=== PATIENT | female | born 1980 | race Caucasian/White ===

== ENCOUNTER 2017-02-28 11:51 | Emergency (ER) | payer SELFPAY ==
[2017-02-28] MEDS ORDERED: NS 0.9% 1000 ML* 1,000 ML IV ONE (12:17)
[2017-02-28] MEDS ORDERED: Morphine INJ* 4 MG/ML 1 ML CARPUJECT IV ONE (12:17)
[2017-02-28] MEDS ORDERED: Ondansetron INJ* 2 MG/ML VIAL IV ONE (12:17)
[2017-02-28 12:37] LABS: Hematocrit 38 % (35-47); Hemoglobin 13.4 g/dl (12.0-16.0); Mean Corpuscular HGB Conc 36 g/dl (31-36); Mean Corpuscular Hemoglobin 34 pg (27-31); Mean Corpuscular Volume 95 fL (80-97); Mean Platelet Volume 7 um3 (7.4-10.4); Red Blood Count 3.98 10^6/ul (4.0-5.4); Red Cell Distribution Width 12 % (10.5-15); White Blood Count 4.9 10^3/ul (3.5-10.8)
[2017-02-28 12:54] LABS: ALT 13 U/L (7-52); AST 14 U/L (13-39); Albumin 4.1 g/dL (3.2-5.2); Alkaline Phosphatase 51 U/L (34-104); Anion Gap 6 mmol/L (2-11); Blood Urea Nitrogen 10 mg/dL (6-24); C Reactive Protein 2.44 mg/L (< 5.00); CO2 Carbon Dioxide 26 mmol/L (22-32); Calcium 9.2 mg/dL (8.6-10.3); Chloride 105 mmol/L (101-111); EGFR Non-African American 69.9 (>60); Globulin 2.6 g/dL (2-4); Glucose 125 mg/dL (70-100); Lipase 26 U/L (11.0-82.0); Potassium 3.6 mmol/L (3.5-5.0); Sodium 137 mmol/L (133-145); Total Protein 6.7 g/dL (6.4-8.9)
[2017-02-28] MEDS ORDERED: Iohexol 300* (CONTRAST) 10 ML SDV IV ONE (14:16)
--- NOTE | 2017-02-28 14:58 | RAD ---
CLINICAL HISTORY: Right lower quadrant tenderness COMPARISON: None TECHNIQUE: Multiple contiguous axial CT scans were obtained of the abdomen and pelvis after the administration of intravenous contrast. Coronal and sagittal multiplanar reformations are submitted for review. Oral contrast was administered. Delayed images were obtained through the abdomen and pelvis. FINDINGS: LUNG BASES: The lung bases are clear. LIVER: The liver is normal in shape, size, contour, and attenuation. BILE DUCTS: There is no intrahepatic or extrahepatic biliary dilatation. GALLBLADDER: The gallbladder is normal, without pericholecystic inflammatory change. PANCREAS: The pancreas is normal, without mass or ductal dilatation. SPLEEN: Normal in size and appearance. UPPER GI TRACT: Evaluation of the gastrointestinal tract is limited by incomplete gastric distention. The upper GI tract is unremarkable. SMALL BOWEL AND MESENTERY: The small bowel is normal in contour, course, and caliber. There is no obstruction or dilatation. COLON: The colon is normal in contour, course, caliber. There is no pericolonic inflammatory change. There is a tubular, vermiform, hollow viscus that is blind ending, and originates from the cecum, consistent with a normal appendix. There is no periappendiceal inflammatory change. This is best seen on coronal image 41. ADRENALS: Normal bilaterally. KIDNEYS: The kidneys are normal in shape, size, contour, and axis. There is no hydronephrosis or nephrolithiasis. BLADDER: The bladder is smooth in contour. PELVIC ORGANS: There is a complex of right ovarian cysts measuring up to 5.6 cm in size. AORTA: The aorta is normal. IVC: Unremarkable LYMPH NODES: There is no lymphadenopathy by size criteria. ABDOMINAL WALL: There is a small fat-containing umbilical hernia. BONES AND SOFT TISSUES: Unremarkable OTHER: None IMPRESSION: 1. NORMAL APPENDIX. 2. RIGHT OVARIAN CYSTS MEASURING UP TO 5. 6 CM IN SIZE. IF CLINICALLY INDICATED, THIS CAN BE FURTHER EVALUATED WITH ULTRASOUND OF THE PELVIS..
--- NOTE | 2017-02-28 16:18 | RAD ---
INDICATION: Right lower quadrant abdominal pain. COMPARISON: Comparison is made with a prior CT of the abdomen and pelvis from February 28, 2017 and a prior pelvic ultrasound from March 23, 2004. TECHNIQUE: Multiple real-time transvaginal images of the pelvis were obtained. FINDINGS: The uterus is normal in size, shape and echogenicity. The uterus measured 9.6 x 5.3 x 6.5 cm. The endometrial echo measured 1.1 cm in thickness. There is a small cystlike structure present within the endometrium measuring 0.6 x 0.8 x 0.6 cm likely representing an endometrial cyst less likely an early intrauterine . In addition there is a hyperechoic lesion present within the endometrium measuring 0.8 x 0.4 x 0.7 cm suspicious for an endometrial polyp. The right ovary measured 6.0 x 4.9 x 3.9 cm. The left ovary measured 2.8 x 1.5 x 2.5 cm. There is vascular flow within both ovaries. There is a 3.7 x 3.4 x 3.6 cm simple cyst present within the right ovary and a hyperechoic lesion in the right ovary measuring 2.7 x 2.5 x 2.1 cm likely representing a hemorrhagic cyst. There is a small amount of adjacent free intraperineal fluid. IMPRESSION: 1. SMALL CYSTLIKE STRUCTURE PRESENT WITHIN THE ENDOMETRIAL CAVITY LIKELY REPRESENTING AN ENDOMETRIAL CYST LESS LIKELY AN EARLY INTRAUTERINE . RECOMMEND CLINICAL CORRELATION. 2. SMALL HYPERECHOIC LESION IN THE ENDOMETRIUM SUGGESTIVE OF A ENDOMETRIAL POLYP. 3. RIGHT OVARIAN CYSTS DESCRIBED. THE SMALLER CYST IS COMPLEX LIKELY REPRESENTING A HEMORRHAGIC CYST. RECOMMEND A FOLLOW-UP TRANSVAGINAL PELVIC ULTRASOUND IN 1-2 MONTHS TIME TO DEMONSTRATE RESOLUTION.
[2017-02-28] MEDS ORDERED: oxyCODONE/Acetamin 5/325 MG* TAB PO ONE (16:27)
[2017-02-28 18:22] VITALS: BP 123/70
--- NOTE | 2017-02-28 21:59 | ED ---
Hilda Tyson Thomas, scribed for Braydon Triana MD on 02/28/17 at 1220 . Abdominal Pain/Female - HPI Summary HPI Summary: The pt is a 36 y/o F presenting to the ED c/o RLQ abd pain that suddenly began yesterday at 18:30 shortly after she urinated. The pain is constant. The pain is rated 9/10. The pain is aggravated by palpation and is alleviated by nothing. The patient has treated the pain with nothing PATIENT CARE PROVIDER. Pt additionally c/o nausea, vomiting, decreased appetite, constipation (last BM was 3 days ago), generalized malaise, and sweats. Pt denies fever and chills. PMHx includes umbilical hernia. The patient denies a history of abdominal surgery. - History of Current Complaint Chief Complaint: EDAbdPain Stated Complaint: RIGHT ABD PAIN Time Seen by Provider: 02/28/17 12:11 Hx Obtained From: Patient Onset/Duration: Sudden Onset, Lasting Days - 1, Still Present Timing: Constant Severity Currently: Severe Pain Intensity: 9 Pain Scale Used: 0-10 Numeric Location: Discrete At: RLQ Aggravating Factor(s): Other: - Palpation Alleviating Factor(s): Nothing Associated Signs and Symptoms: Positive: Constipation - last BM thre days ago, Decreased Appetite, Nausea, Vomiting, Other: - Generalized malaise, sweats; NEGATIVE: chills. Negative: Fever, Diarrhea Allergies/Adverse Reactions: Allergies Allergy/AdvReac Type Severity Reaction Status Date / Time No Known Allergies Allergy Verified 02/02/13 12:43 PMH/Surg Hx/FS Hx/Imm Hx Previously Healthy: No Endocrine/Hematology History: Denies: Hx Diabetes Cardiovascular History: Denies: Hx Pacemaker/ICD Respiratory History: Reports: Hx Asthma History: Reports: Other Problems/Disorders - Hx umbical hernia Sensory History: Denies: Hx Hearing Aid Psychiatric History: Denies: Hx Panic Disorder - Surgical History Surgery Procedure, Year, and Place: LEFT THUMB ~ 1994; Infectious Disease History: No Infectious Disease History: Denies: Traveled Outside the [place] in Last 30 Days - Family History Known Family History: Positive: Diabetes - Social History Lives: With Family Alcohol Use: None Substance Use Type: Reports: None Smoking Status (MU): Never Smoked Tobacco Review of Systems Positive: Other - Generalized malaise, sweats. Negative: Fever, Chills Negative: Erythema - eyes Negative: Sore Throat Negative: Chest Pain Negative: Shortness Of Breath, Cough Positive: Abdominal Pain - RLQ, Vomiting, Nausea, Other - Decreased appetite, constipation Negative: dysuria, hematuria Negative: Myalgia, Edema - legs Negative: Rash Neurological: Other - NEGATIVE: dizziness All Other Systems Reviewed And Are Negative: Yes Physical Exam - Summary Physical Exam Summary: Constitutional: Well-developed, Well-nourished, Alert. (-) Distressed Skin: Warm, Dry HENT: Normocephalic; Atraumatic Eyes: Conjunctiva normal Neck: Musculoskeletal ROM normal neck. (-) JVD, (-) Stridor, (-) Tracheal deviation Cardio: Rhythm regular, rate normal, Heart sounds normal; Intact distal pulses; The pedal pulses are 2+ and symmetric. Radial pulses are 2+ and symmetric. (-) Murmur Pulmonary/Chest wall: Effort normal. (-) Respiratory distress, (-) Wheezes, (-) Rales Abd: She has RLQ tenderness. There is an umbilical hernia that is soft, easily reducible, and nontender. Soft, (-) Distension, (-) Guarding, (-) Rebound Musculoskeletal: (-) Edema Lymph: (-) Cervical adenopathy Neuro: Alert, Oriented x3 Psych: Mood and affect Normal Vital Signs On Initial Exam: Initial Vitals Temp Pulse Resp BP Pulse Ox 97.7 F 95 20 131/77 100 02/28/17 11:52 02/28/17 11:52 02/28/17 11:52 02/28/17 11:52 02/28/17 11:52 - [place] Coma Scale Coma Scale Total: 15 Diagnostics - Vital Signs Vital Signs Temp Pulse Resp BP Pulse Ox 02/28/17 11:52 97.7 F 95 20 131/77 100 - Laboratory Result Diagrams: 02/28/17 12:25 02/28/17 12:25 Lab Statement: Any lab studies that have been ordered have been reviewed, and results considered in the medical decision making process. - CT CT Abd/Pel CT Interpretation: Positive (See Comments) - 1. NORMAL APPENDIX. 2. RIGHT OVARIAN CYSTS MEASURING UP TO 5. 6 CM IN SIZE. IF CLINICALLY INDICATED, THIS CAN BE FURTHER EVALUATED WITH ULTRASOUND OF THE PELVIS. ED physician has reviewed this report and agrees. CT Interpretation Completed By: Radiologist - Additional Comments Diagnostic Additional Comments: Transvaginal Ultrasound. Interpreted by radiologist. Impression: 1. SMALL CYSTLIKE STRUCTURE PRESENT WITHIN THE ENDOMETRIAL CAVITY LIKELY REPRESENTING AN ENDOMETRIAL CYST LESS LIKELY AN EARLY INTRAUTERINE . RECOMMEND CLINICAL CORRELATION. 2. SMALL HYPERECHOIC LESION IN THE ENDOMETRIUM SUGGESTIVE OF A ENDOMETRIAL POLYP. 3. RIGHT OVARIAN CYSTS DESCRIBED. THE SMALLER CYST IS COMPLEX LIKELY REPRESENTING A HEMORRHAGIC CYST. RECOMMEND A FOLLOW-UP TRANSVAGINAL PELVIC ULTRASOUND IN 1-2 MONTHS TIME TO DEMONSTRATE RESOLUTION. ED physician has reviewed this report and agrees. Re-Evaluation - Re-Evaluation First Eval Re-Evaluation Time: 17:55 Change: Worse Comment: Patient's pain severity has increased to 9/10. I will call OBGYN. Second Eval Re-Evaluation Time: 18:13 Change: Unchanged Comment: I updated the patient and her . Abdominal Pain Fem Course/Dx - Course Course Of Treatment: The pt is a 36 y/o F presenting to the ED c/o RLQ abd pain that suddenly began yesterday at 18:30 shortly after she urinated. The pain is constant. The pain is rated 9/10. The pain is aggravated by palpation and is alleviated by nothing. The patient has treated the pain with nothing PATIENT CARE PROVIDER. Pt additionally c/o nausea, vomiting, decreased appetite, constipation (last BM was 3 days ago), generalized malaise, and sweats. Pt denies fever and chills. PMHx includes umbilical hernia. The patient denies a history of abdominal surgery. In the ED course the patient was given Morhpine, IV fluids, and Zofran. At re-evaluation at 15:22, the patient is resting normally. Bloodwork was obtained. CT Abd/Pel shows 1. NORMAL APPENDIX. 2. RIGHT OVARIAN CYSTS MEASURING UP TO 5. 6 CM IN SIZE. IF CLINICALLY INDICATED, THIS CAN BE FURTHER EVALUATED WITH ULTRASOUND OF THE PELVIS. Transvaginal US shows 1. SMALL CYSTLIKE STRUCTURE PRESENT WITHIN THE ENDOMETRIAL CAVITY LIKELY REPRESENTING AN ENDOMETRIAL CYST LESS LIKELY AN EARLY INTRAUTERINE . RECOMMEND CLINICAL CORRELATION. 2. SMALL HYPERECHOIC LESION IN THE ENDOMETRIUM SUGGESTIVE OF A ENDOMETRIAL POLYP. 3. RIGHT OVARIAN CYSTS DESCRIBED. THE SMALLER CYST IS COMPLEX LIKELY REPRESENTING A HEMORRHAGIC CYST. RECOMMEND A FOLLOW-UP TRANSVAGINAL PELVIC ULTRASOUND IN 1-2 MONTHS TIME TO DEMONSTRATE RESOLUTION. I consulted with LYNSEY Moy, who will see the patient tomorrow if she is in severe pain or next week if she is not in severe pain.The patient is diagnosed with hemorrhagic cyst to the right ovary. The patient is instructed to follow up with OBGYN. The patient is prescribed Percocet. Patient was given a work note for three days. Patient is agreeable with this plan. - Diagnoses Provider Diagnoses: Hemorrhagic cyst of right ovary - Provider Notifications Discussed Care Of Patient With: Axel Benites Time Discussed With Above Provider: 18:11 Instructed by Provider To: Other - I consulted with LYNSEY Moy, who will see the patient tomorrow if she is in severe pain or next week if she is not in severe pain. Discharge - Discharge Plan Condition: Stable Disposition: HOME Prescriptions: oxyCODONE/Acetamin 5/325 MG* [Percocet 5/325 TAB*] 1 tab PO Q6H PRN #12 tab MDD 4 PRN Reason: Pain - Moderate To Severe Patient Education Materials: Ovarian Cyst (ED) Forms: *Work Release Referrals: Axel Benites MD [Medical Doctor] - 7 Days Additional Instructions: Follow up at Dr. Benites's office next week. If you still have severe pain tomorrow, you should call for an appointment tomorrow afternoon. Return to the emergency department for any new or worsening symptoms. The documentation as recorded by the Hilda gonzalez Thomas accurately reflects the service I personally performed and the decisions made by me, Braydon Triana MD.
== END 2017-02-28 18:21 | disposition home or self-care (01) ==
LOC: ED 11:51
DX: N83.201 Unspecified ovarian cyst, right side (principal); R10.31 Right lower quadrant pain; R11.2 Nausea with vomiting, unspecified
CPT/HCPCS: 36415; 74177; 76830; 80053; 83605; 83690; 84702; 85025; 86140; 96374; 96375; 99282; A9270-GY; J2270; J2405; Q9967

== ENCOUNTER 2017-07-26 08:51 | Emergency (ER) | payer SELFPAY ==
[2017-07-26 10:31] LABS: ABS Basophils 0 10^3/ul (0-0.2); ABS Eosinophils 0.1 10^3/ul (0-0.6); ABS Lymphocytes 1.6 10^3/ul (1.0-4.8); ABS Monocytes 0.4 10^3/ul (0-0.8); ABS Neutrophils 3.4 10^3/ul (1.5-7.7); ABS Nucleated RBC 0 10^3/ul; Eosinophil % 1.8 % (0-6); Hematocrit 38 % (35-47); Hemoglobin 13.3 g/dl (12.0-16.0); Lymphocyte % 29.4 % (25-47); Mean Corpuscular HGB Conc 35 g/dl (31-36); Mean Corpuscular Hemoglobin 33 pg (27-31); Mean Corpuscular Volume 94 fL (80-97); Mean Platelet Volume 6.6 um3 (7.4-10.4); Nucleated Red Blood Cells % 0; Platelet Count 329 10^3/ul (150-450); Red Blood Count 4.02 10^6/ul (4.0-5.4); Red Cell Distribution Width 12 % (10.5-15); White Blood Count 5.6 10^3/ul (3.5-10.8)
--- NOTE | 2017-07-26 10:37 | RAD ---
HISTORY: Left-sided numbness COMPARISONS: March 16, 2015 TECHNIQUE: Multiple contiguous axial CT scans were obtained of the head without intravenous contrast. FINDINGS: HEMORRHAGE/INFARCT: There is no hemorrhage or acute infarct. MASSES/SHIFT: There is no mass or shift. EXTRA-AXIAL SPACES: There are no extra-axial fluid collections. SULCI AND VENTRICLES: The sulci and ventricles are normal in size and position for the patient's stated age. CEREBRUM: There are no focal parenchymal abnormalities. BRAINSTEM: There are no focal parenchymal abnormalities. CEREBELLUM: There are no focal parenchymal abnormalities. VESSELS: The vessels are grossly normal. PARANASAL SINUSES: The paranasal sinuses are clear. ORBITS: The orbits are unremarkable. BONES AND SOFT TISSUE: No bone or soft tissue abnormalities are noted. OTHER: None IMPRESSION: NO ACUTE INTRACRANIAL PATHOLOGY.
[2017-07-26 10:39] LABS: INR 0.94 (0.77-1.02)
--- NOTE | 2017-07-26 10:56 | RAD ---
INDICATION: Left-sided numbness. COMPARISON: Correlation is made with a prior chest x-ray study from March 16, 2015. TECHNIQUE: Dual-energy PA and lateral views of the chest were obtained. FINDINGS: The heart is within normal limits in size. Mediastinal and hilar contours appear within normal limits. The lungs are clear. No pleural effusion is present. IMPRESSION: NO EVIDENCE FOR ACTIVE CARDIOPULMONARY DISEASE.
[2017-07-26 11:23] LABS: Urine Appearance Clear; Urine Blood 2+ (Negative); Urine Color Straw; Urine Ketones Negative (Negative); Urine Protein Negative (Negative); Urine Specific Gravity 1.005 (1.010-1.030); Urine Urobilinogen Negative (Negative)
[2017-07-26 14:07] VITALS: BP 114/61
--- NOTE | 2017-07-27 12:00 | ED ---
Derrick Tyson Angela, scribed for Naveen Machado MD on 07/26/17 at 1025 . Neurological HPI - HPI Summary HPI Summary: This pt is a 37 y/o female [facility] [place]/o left arm numbness x2 days. Pt reports that 5 days ago she felt as if her "sugar was crashing", although she is not a diabetic, where she felt weak and fatigued. Pt notes she ate candy and drank soda and her symptoms resolved. Pt states she was fine over the weekend but 2 days ago she had the same episode but this time her symptoms did not resolve after sugar. She reports that her whole left side suddenly became numb. Currently she states her numbness resolved except for numbness on her left arm. She additionally notes generalized weakness, fatigue, and mild dizziness. Pt reports she feels hot and cold. Denies chest pain, SOB, headache, dysuria, diarrhea, constipation, fever, chills , cough. Pt had similar episode happen "years ago" where she lost vision but all resolved spontaneously. Denies hx of migraine or headaches. - History of Current Complaint Chief Complaint: EDWeakness Stated Complaint: LT ARM NUMBNESS Time Seen by Provider: 07/26/17 09:52 Hx Obtained From: Patient Onset/Duration: Started days ago, Still Present Timing: Sudden Onset Current Severity: Mild Pain Intensity: 0 - denies pain Pain Scale Used: 0-10 Numeric Character: Weak - generalized, Numbness/Tingling - numbness in left arm Aggravating: Nothing Alleviating: Nothing Associated Signs and Symptoms: Positive: Weakness - generalized, Dizziness. Negative: Headache, Pain, Nausea/Vomiting, Fever, Diarrhea, Chest Pain, Shortness of Breath - Allergy/Home Medications Allergies/Adverse Reactions: Allergies Allergy/AdvReac Type Severity Reaction Status Date / Time No Known Allergies Allergy Verified 02/02/13 12:43 Home Medications: Home Medications NK [No Home Medications Reported] 07/26/17 [History Confirmed 07/26/17] PMH/Surg Hx/FS Hx/Imm Hx Endocrine/Hematology History: Denies: Hx Diabetes Cardiovascular History: Denies: Hx Pacemaker/ICD Respiratory History: Reports: Hx Asthma History: Reports: Other Problems/Disorders - Hx umbical hernia Sensory History: Denies: Hx Hearing Aid Psychiatric History: Denies: Hx Panic Disorder - Surgical History Surgery Procedure, Year, and Place: LEFT THUMB ~ 1994; Infectious Disease History: No Infectious Disease History: Denies: Traveled Outside the [place] in Last 30 Days - Family History Known Family History: Positive: Diabetes Family History: Cancer - Social History Alcohol Use: Occasionally Alcohol Amount: 5-6 on weekends Substance Use Type: Reports: None Smoking Status (MU): Never Smoked Tobacco Review of Systems Positive: Fatigue. Negative: Fever Negative: Chest Pain Negative: Shortness Of Breath, Cough Negative: Diarrhea, Other - constipation Negative: dysuria Neurological: Other - POS: dizziness Positive: Weakness - generalized, Numbness - in left arm. Negative: Headache All Other Systems Reviewed And Are Negative: Yes Physical Exam - Summary Physical Exam Summary: VITAL SIGNS: Reviewed. GENERAL: Patient is a well-developed and nourished female who is lying comfortable in the stretcher. Patient is not in any acute respiratory distress. HEAD AND FACE: No signs of trauma. No ecchymosis, hematomas or skull depressions. No sinus tenderness. EYES: PERRLA, EOMI x 2, No injected conjunctiva, no nystagmus. No photophobia. EARS: Hearing grossly intact. Ear canals and tympanic membranes are within normal limits. MOUTH: Oropharynx within normal limits. NECK: Supple, trachea is midline, no adenopathy, no JVD, no carotid bruit, no c- spine tenderness, neck with full ROM. No meningeal signs, no Kernig's or brudzinskis signs. CHEST: Symmetric, no tenderness at palpation LUNGS: Clear to auscultation bilaterally. No wheezing or crackles. CVS: Regular rate and rhythm, S1 and S2 present, no murmurs or gallops appreciated. ABDOMEN: Soft, non-tender. No signs of distention. No rebound no guarding, and no masses palpated. Bowel sounds are normal. EXTREMITIES: FROM in all major joints, no edema, no cyanosis or clubbing. NEURO: Alert and oriented x 3. No acute neurological deficits. Speech is normal and follows commands. SKIN: Dry and warm GCS: 15 Triage Information Reviewed: Yes Vital Signs On Initial Exam: Initial Vitals Temp Pulse Resp BP Pulse Ox 98.3 F 75 16 120/67 100 07/26/17 08:54 07/26/17 08:54 07/26/17 08:54 07/26/17 08:54 07/26/17 08:54 Vital Signs Reviewed: Yes - [place] Coma Scale Best Eye Response: 4 - Spontaneous Best Motor Response: 6 - Obeys Commands Best Verbal Response: 5 - Oriented Coma Scale Total: 15 Diagnostics - Vital Signs Vital Signs Temp Pulse Resp BP Pulse Ox 07/26/17 10:00 70 15 132/80 99 07/26/17 09:46 68 13 100 07/26/17 09:44 108/68 07/26/17 08:54 98.3 F 75 16 120/67 100 - Laboratory Result Diagrams: 07/26/17 10:21 07/26/17 10:21 Lab Statement: Any lab studies that have been ordered have been reviewed, and results considered in the medical decision making process. - Radiology Chest XR Xray Interpretation: No Acute Changes - IMPRESSION: No evidence for active cardiopulmonary disease. Dr. Machado has reviewed this radiology report. Radiology Interpretation Completed By: Radiologist - CT Brain CT CT Interpretation: No Acute Changes - IMPRESSION: No acute intracranial pathology. Dr. Machado has reviewed this radiology report. CT Interpretation Completed By: Radiologist - EKG 10:13 Cardiac Rate: Bradycardia EKG Rhythm: Sinus Bradycardia - at 59 bpm EKG Interpretation: No ST elevations. Normal axis. NIH Scale - NIH Scale Level of Consciousness: Alert/Keenly Responsive Ask Patient the Month and His/Her Age: Both Correct Ask Pt to Open/Close Eyes and Bag Worker/Release Non-Paretic Hand: Both Correctly Best Gaze (Only Horizontal Eye Movement): Normal Visual Field Testing: No Visual Loss Facial Paresis-Pt to Smile & Close Eyes or Grimace Symmetry: Normal/Symmetrical Motor Function - Right Arm: No Drift-Holds 10 Seconds Motor Function - Left Arm: No Drift-Holds 10 Seconds Motor Function - Right Leg: No Drift-Holds 10 Seconds Motor Function - Left Leg: No Drift-Holds 10 Seconds Limb Ataxia-Must be out of Proportion to Weakness Present: Absent Sensory (Use Pinprick to Test Arms/Legs/Trunk/Face): Normal Best Language (Describe Picture, Name Items): No Aphasia Dysarthria (Read Several Words): Normal Extinction and Inattention: No Abnormality Total Score: 0 Re-Evaluation - Re-Evaluation First Eval Re-Evaluation Time: 13:52 Comment: I reviewed the labs, XR, and CT results with the pt. Pt will be discharged home. Course/Dx - Course Assessment/Plan: This pt is a 37 y/o female presenting [facility] [place]/o left arm numbness x2 days. Pt reports that 5 days ago she felt as if her "sugar was crashing", although she is not a diabetic, where she felt weak and fatigued. Pt notes she ate candy and drank soda and her symptoms resolved. Pt states she was fine over the weekend but 2 days ago she had the same episode but this time her symptoms did not resolve after sugar. She reports that her whole left side suddenly became numb. Currently she states her numbness resolved except for numbness on her left arm. She additionally notes generalized weakness, fatigue, and mild dizziness. Pt reports she feels hot and cold. Denies chest pain, SOB, headache, dysuria, diarrhea, constipation, fever, chills, cough. Pt had similar episode happen "years ago" where she lost vision but all resolved spontaneously. Denies hx of migraine or headaches. On exam, pt has no neurological deficits with an NIH score of 0. Test results without any significant abnormalities except for sodium of 137. Brain CT shows no acute intracranial pathology. Chest XR shows no evidence for active cardiopulmonary disease. Therefore she will be discharged to home with follow up from her PCP. I discussed all the findings and test results with the patient. All questions were answered to patient satisfaction. There were no further complaints or concerns. She is instructed to return to the ED for any worsening or new symptoms. Pt is hemodynamically stable, alert and oriented x3. - Diagnoses Provider Diagnoses: Paresthesia Discharge - Sign-Out/Discharge Documenting (check all that apply): Discharge - discharge to home - Discharge Plan Condition: Stable Disposition: HOME Patient Education Materials: Paresthesia (ED) Referrals: Aly SHRESTHA,Devendra Pineda [Primary Care Provider] - 3 Days Additional Instructions: Please follow up with your primary care provider. RETURN TO THE ED FOR ANY NEW OR WORSENING SYMPTOMS. The documentation as recorded by the Derrick gonzalez Angela accurately reflects the service I personally performed and the decisions made by me, Naveen Machado MD.
== END 2017-07-26 14:06 | disposition home or self-care (01) ==
LOC: ED 08:51
DX: R20.2 Paresthesia of skin (principal); R53.1 Weakness; R42 Dizziness and giddiness; R53.83 Other fatigue; R00.1 Bradycardia, unspecified; Z32.02 Encounter for pregnancy test, result negative; J45.909 Unspecified asthma, uncomplicated
CPT/HCPCS: 36415; 70450; 71046; 80053; 80061; 81003; 81015; 83605; 84484; 84702; 85025; 85610; 85730; 87086; 93005; 99283

== ENCOUNTER 2017-11-06 08:23 | Emergency (ER) | payer SELFPAY ==
[2017-11-06 08:32] VITALS: BP 117/70
--- NOTE | 2017-11-06 08:49 | ED ---
Abdominal Pain/Female - HPI Summary HPI Summary: : Pt is a 37 Year old female c/o of diarrhea and sharp abdominal pain rated 9-10 /10 since yesterday morning. The pain is still present and is worsened by movement. She notes loss of appetite, vomiting, nausea and diaphoresis. Her LNMP was end of October. This is SooYoung lisa Stephens, documenting for attending, Dr. Mynor Avelar MD. - History of Current Complaint Chief Complaint: UCAbdominalPain Stated Complaint: ABD PAIN Time Seen by Provider: 11/06/17 08:40 Hx Obtained From: Patient Hx Last Menstrual Period: 10/15/17 Onset/Duration: Lasting Days - Since yesterday, Still Present Timing: Constant Severity Currently: Severe Pain Intensity: 10 Pain Scale Used: 0-10 Numeric Location: Other - Right Abd. Aggravating Factor(s): Movement Allergies/Adverse Reactions: Allergies Allergy/AdvReac Type Severity Reaction Status Date / Time No Known Allergies Allergy Verified 11/06/17 08:32 PMH/Surg Hx/FS Hx/Imm Hx Endocrine/Hematology History: Denies: Hx Diabetes Cardiovascular History: Denies: Hx Pacemaker/ICD Respiratory History: Reports: Hx Asthma History: Reports: Other Problems/Disorders - Hx umbical hernia Sensory History: Denies: Hx Hearing Aid Psychiatric History: Denies: Hx Panic Disorder - Surgical History Surgery Procedure, Year, and Place: LEFT THUMB ~ 1994; Infectious Disease History: No Infectious Disease History: Denies: Traveled Outside the [place] in Last 30 Days - Family History Known Family History: Positive: Diabetes Family History: Cancer - Social History Alcohol Use: Occasionally Alcohol Amount: 5-6 on weekends Substance Use Type: Reports: None Smoking Status (MU): Never Smoked Tobacco Physical Exam Vital Signs On Initial Exam: Initial Vitals Temp Pulse Resp BP Pulse Ox 98.1 F 69 16 117/70 100 11/06/17 08:28 11/06/17 08:28 11/06/17 08:28 11/06/17 08:28 11/06/17 08:28 Diagnostics - Vital Signs Vital Signs Temp Pulse Resp BP Pulse Ox 11/06/17 08:28 98.1 F 69 16 117/70 100 - Laboratory Lab Results: Lab Results 11/06/17 Range/Units 08:39 POC Urine Color Yellow POC Urine Clarity Clear POC Urine pH 7.0 (5-9) POC Ur Specif Bruce 1.025 (1.010-1.030) POC Urine Protein Negative (Negative) POC Ur Glucose (UA) Negative (Negative) POC Urine Ketones Trace A (Negative) POC Urine Blood Negative (Negative) POC Urine Nitrite Negative (Negative) POC Urine Bilirubin Negative (Negative) POC Urine Urobilinogen 0.2 (Negative) POC U Leukocyte Esteras Negative (Negative) Lab Statement: Any lab studies that have been ordered have been reviewed, and results considered in the medical decision making process. Discharge - Discharge Plan Condition: Stable Disposition: HOME-RECOMMEND TO ED Patient Education Materials: Acute Abdominal Pain (ED) Referrals: Aly SHRESTHA,Devendra Pineda [Primary Care Provider] - Additional Instructions: GO DIRECTLY TO THE EMERGENCY DEPARTMENT FOR FURTHER EVALUATION OF YOUR ABDOMINAL PAIN
--- NOTE | 2017-11-06 09:16 | UC ---
Abdominal Pain Female HPI - HPI Summary HPI Summary: Pt is a 37 year old female c/o severe R-sided abdominal pain onset yesterday morning at 0400. Pain is described as sharp and rated 9-10 out of 10. The pain is still present and is worsened by movement. Associated sx: loss of appetite, diarrhea, nausea and diaphoresis. Denies vomiting. LNMP: ended in October. Denies SHx at bedside. This is SooYoung lisa Stephens, documenting for attending, Dr. Mynor Avelar MD. - History of Current Complaint Chief Complaint: UCAbdominalPain Stated Complaint: ABD PAIN Time Seen by Provider: 11/06/17 08:40 Hx Obtained From: Patient Hx Last Menstrual Period: 10/15/17 Onset/Duration: Lasting Days - Since yesterday, Still Present Timing: Constant Severity Initially: Moderate Severity Currently: Severe Pain Intensity: 10 Pain Scale Used: 0-10 Numeric Location: Other - Right abdomen Character: Sharp Aggravating Factor(s): Movement Associated Signs and Symptoms: Positive: Diaphoresis, Nausea, Diarrhea, Other: - Loss of appetite. Negative: Vomiting Allergies/Adverse Reactions: Allergies Allergy/AdvReac Type Severity Reaction Status Date / Time No Known Allergies Allergy Verified 11/06/17 08:32 PMH/Surg Hx/FS Hx/Imm Hx Previously Healthy: Yes Endocrine History: Other Other Endocrine History: Neg:DM Respiratory History: Asthma - Surgical History Surgical History: Yes Surgery Procedure, Year, and Place: LEFT THUMB ~ 1994; - Family History Known Family History: Positive: Diabetes Family History: Cancer - Social History Occupation: Employed Full-time Lives: With Family Alcohol Use: Occasionally Alcohol Amount: 5-6 on weekends Substance Use Type: None Smoking Status (MU): Never Smoked Tobacco - Immunization History Most Recent Influenza Vaccination: unsure Most Recent Tetanus Shot: unsure Most Recent Pneumonia Vaccination: never Review of Systems Constitutional: Other - Diaphoresis Gastrointestinal: Abdominal Pain, Diarrhea, Nausea, Other - pos: loss of appetite; neg: vomiting All Other Systems Reviewed And Are Negative: Yes Physical Exam - Summary Physical Exam Summary: General: Mild distress Skin: warm, color reflects adequate perfusion, dry Head: normal Eyes: EOMI, MARGO ENT: normal Neck: supple, nontender Respiratory: CTA, breath sounds present Cardiovascular: RRR Abdomen:Hypoactive bowel sounds, McBurney's point tenderness, positive heel strike Bowel: present Musculoskeletal: Negative obturator sign Neurological: sensory/motor intact, A&O x3 Psychological: affect/mood appropriate Triage Information Reviewed: Yes Vital Signs: Initial Vital Signs Temp 98.1 F 11/06/17 08:28 Pulse 69 11/06/17 08:28 Resp 16 11/06/17 08:28 BP 117/70 11/06/17 08:28 Pulse Ox 100 11/06/17 08:28 Vital Signs Reviewed: Yes Abd Pain Female Course/Dx - Course Course Of Treatment: Medications and allergies reviewed. RECOMMENDED FURTHER EVALUATION NOW IN THE ED FOR RLQ PAIN. - Differential Dx/Diagnosis Provider Diagnoses: RLQ ABDOMINAL PAIN Discharge - Sign-Out/Discharge Documenting (check all that apply): Patient Departure - Discharge Plan Condition: Stable Disposition: HOME-RECOMMEND TO ED Patient Education Materials: Acute Abdominal Pain (ED) Referrals: Aly SHRESTHA,Devendra Pineda [Primary Care Provider] - Additional Instructions: GO DIRECTLY TO THE EMERGENCY DEPARTMENT FOR FURTHER EVALUATION OF YOUR ABDOMINAL PAIN - Billing Disposition and Condition Condition: STABLE Disposition: Home-Recommend to ED
== END 2017-11-06 08:50 | disposition home health service (06) ==
LOC: UCEAST 08:23
DX: R10.31 Right lower quadrant pain (principal); R63.0 Anorexia; R19.7 Diarrhea, unspecified; R11.0 Nausea; R61 Generalized hyperhidrosis; J45.909 Unspecified asthma, uncomplicated
CPT/HCPCS: 81003; 84702; 99212; G0463

== ENCOUNTER 2017-11-06 09:07 | Emergency (ER) | payer SELFPAY ==
[2017-11-06 09:43] LABS: Urine Appearance Clear; Urine Blood Negative (Negative); Urine Color Yellow; Urine Ketones Negative (Negative); Urine Protein Negative (Negative); Urine Specific Gravity 1.023 (1.010-1.030); Urine Urobilinogen Negative (Negative)
[2017-11-06 09:48] LABS: ABS Basophils 0 10^3/ul (0-0.2); ABS Eosinophils 0.2 10^3/ul (0-0.6); ABS Lymphocytes 1.7 10^3/ul (1.0-4.8); ABS Monocytes 0.5 10^3/ul (0-0.8); ABS Neutrophils 2.6 10^3/ul (1.5-7.7); ABS Nucleated RBC 0 10^3/ul; Eosinophil % 3.5 % (0-6); Hematocrit 38 % (35-47); Hemoglobin 13.2 g/dl (12.0-16.0); Lymphocyte % 34.1 % (25-47); Mean Corpuscular HGB Conc 35 g/dl (31-36); Mean Corpuscular Hemoglobin 33 pg (27-31); Mean Corpuscular Volume 96 fL (80-97); Mean Platelet Volume 6.6 um3 (7.4-10.4); Nucleated Red Blood Cells % 0.1; Platelet Count 321 10^3/ul (150-450); Red Blood Count 3.96 10^6/ul (4.00-5.40); Red Cell Distribution Width 13 % (10.5-15); White Blood Count 5.1 10^3/ul (3.5-10.8)
[2017-11-06] MEDS ORDERED: Morphine VIAL* 4 MG/ML VIAL (1 ml vial) IV ONE (09:51)
[2017-11-06] MEDS ORDERED: Ondansetron INJ* 2 MG/ML VIAL IV ONE (09:51)
--- NOTE | 2017-11-06 09:58 | ED ---
Abdominal Pain/Female - HPI Summary HPI Summary: Patient presents with right-sided abdominal pain since yesterday - sent here from . She reports this was preceded by a decreased appetite since Monday. Sharp pain started yesterday around her umbilicus and went to the right side. Associated symptoms were diarrhea w/o hematochezia. Today she woke with worsening of her nausea and new onset subjective fever, chills. She reports her pain is 8 out of 10 despite trying Aleve last night. Last oral intake was a half a cup of water at 7 AM today. Last food intake included uzbek fries yesterday at noon - she reports neither made her symptoms better or worse. H/o ovarian cyst - this does not feel the same. Dx'd in February [address] and TVUS. When she treated this in the past, it was relieved w/ NSAID and heat - these remedies have not helped this time. Denies sx (ie. dysuria, urinary urgency, urinary frequency, flank pain, vaginal discharge, vaginal pressure, postcoital bleeding, dyspareunia). Follows w/ PCP for routine pap smears, etc - no h/o abnormal results. . All vaginal pregnancies without complication. No previous abdominal surgeries. She does admit to an umbilical hernia that is painless and developed after one of her pregnancies. - History of Current Complaint Chief Complaint: EDAbdPain Stated Complaint: RT SIDE PAIN Time Seen by Provider: 11/06/17 09:28 Hx Obtained From: Patient Hx Last Menstrual Period: 10/15/17 Pain Intensity: 10 Allergies/Adverse Reactions: Allergies Allergy/AdvReac Type Severity Reaction Status Date / Time No Known Allergies Allergy Verified 11/06/17 08:32 PMH/Surg Hx/FS Hx/Imm Hx Previously Healthy: Yes Endocrine/Hematology History: Denies: Hx Anticoagulant Therapy, Hx Blood Disorders, Hx Diabetes, Autoimmune Disease Cardiovascular History: Denies: Hx Pacemaker/ICD Respiratory History: Reports: Hx Asthma GI History: Reports: Other GI Disorders - umbilical hernia Denies: Hx Cirrhosis, Hx Crohn's Disease, Hx Diverticulosis, Hx Gall Bladder Disease, Hx Gastroesophageal Reflux Disease, Hx Gastrointestinal Bleed, Hx Hiatal Hernia, Hx Irritable Bowel, Hx Obstructive Bowel, Hx Ulcer History: Reports: Other Problems/Disorders - ovarian cyst Sensory History: Denies: Hx Hearing Aid Psychiatric History: Denies: Hx Panic Disorder - Surgical History Surgery Procedure, Year, and Place: LEFT THUMB ~ 1994; Infectious Disease History: No Infectious Disease History: Denies: Traveled Outside the [place] in Last 30 Days - Family History Known Family History: Positive: Diabetes Family History: Cancer - Social History Occupation: Employed Full-time - teacher Lives: With Family - and 4 kids Alcohol Use: Occasionally Alcohol Amount: 5-6 on weekends Hx Substance Use: No Substance Use Type: Reports: None Hx Tobacco Use: No Smoking Status (MU): Never Smoked Tobacco Review of Systems Positive: Fever, Chills - subjective. Negative: Fatigue Cardiovascular: Negative Respiratory: Negative Positive: Abdominal Pain, Nausea. Negative: Vomiting, Diarrhea Positive: see HPI Musculoskeletal: Negative Skin: Negative Neurological: Negative Psychological: Normal All Other Systems Reviewed And Are Negative: Yes Physical Exam Triage Information Reviewed: Yes Vital Signs On Initial Exam: Initial Vitals Temp Pulse Resp BP Pulse Ox 98.3 F 78 16 109/72 97 11/06/17 09:08 11/06/17 09:08 11/06/17 09:08 11/06/17 09:08 11/06/17 09:08 Vital Signs Reviewed: Yes Appearance: Positive: Well-Appearing, Well-Nourished, Pain Distress - appears mild but reports "8/10" Skin: Positive: Warm, Skin Color Reflects Adequate Perfusion, Dry Head/Face: Positive: Normal Head/Face Inspection Eyes: Positive: Normal, EOMI, Conjunctiva Clear - anicteric sclera ENT: Positive: Normal ENT inspection, Hearing grossly normal, Pharynx normal - mucosa moist Respiratory/Lung Sounds: Positive: Clear to Auscultation, Breath Sounds Present Cardiovascular: Positive: Normal, RRR Abdomen Description: Positive: No Organomegaly, Soft, Hernia @ - umbilicus - no pain with reduction, Other: - Rt side parallel to umbilicus is w/ mild TTP - no rebounding; + Rovsing. Negative: Distended, Guarding, McBurney's Point Tenderness Bowel Sounds: Positive: Present Pelvic Exam: Positive: External Exam Normal, Bimanual Exam Normal, No Cerv. Motion Tender, No Masses. Negative: Active Bleeding, Lesions Musculoskeletal: Positive: Normal, Strength/ROM Intact Neurological: Positive: Normal, Sensory/Motor Intact, Alert, Oriented to Person Place, Time, CN Intact II-III Psychiatric: Positive: Normal Diagnostics - Vital Signs Vital Signs Temp Pulse Resp BP Pulse Ox 11/06/17 09:28 68 126/77 96 11/06/17 09:08 98.3 F 78 16 109/72 97 - Laboratory Lab Results: Lab Results 11/06/17 11/06/17 Range/Units 09:34 09:36 WBC 5.1 (3.5-10.8) 10^3/ul RBC 3.96 L (4.00-5.40) 10^6/ul Hgb 13.2 (12.0-16.0) g/dl Hct 38 (35-47) % MCV 96 (80-97) fL MCH 33 H (27-31) pg MCHC 35 (31-36) g/dl RDW 13 (10.5-15) % Plt Count 321 (150-450) 10^3/ul MPV 6.6 L (7.4-10.4) um3 Neut % (Auto) 52.1 (38-83) % Lymph % (Auto) 34.1 (25-47) % Crawford % (Auto) 9.5 H (0-7) % Eos % (Auto) 3.5 (0-6) % Baso % (Auto) 0.8 (0-2) % Absolute Neuts (auto) 2.6 (1.5-7.7) 10^3/ul Absolute Lymphs (auto) 1.7 (1.0-4.8) 10^3/ul Absolute Monos (auto) 0.5 (0-0.8) 10^3/ul Absolute Eos (auto) 0.2 (0-0.6) 10^3/ul Absolute Basos (auto) 0 (0-0.2) 10^3/ul Absolute Nucleated RBC 0 10^3/ul Nucleated RBC % 0.1 Urine Color Yellow Urine Appearance Clear Urine pH 7.0 (5-9) Ur Specific Bailey 1.023 (1.010-1.030) Urine Protein Negative (Negative) Urine Ketones Negative (Negative) Urine Blood Negative (Negative) Urine Nitrate Negative (Negative) Urine Bilirubin Negative (Negative) Urine Urobilinogen Negative (Negative) Ur Leukocyte Esterase Negative (Negative) Urine Glucose Negative (Negative) Result Diagrams: 11/06/17 09:36 11/06/17 09:36 Lab Statement: Any lab studies that have been ordered have been reviewed, and results considered in the medical decision making process. Re-Evaluation - Re-Evaluation First Eval Change: Unchanged - pt reports no change in pain w/ morphine - she did not call nurse to indicate her lack of pain control so this was not identified until later in the visit - offered increased dose of morphine before TVUS but pt declined - reports it just made her "feel weird" and she has a high tolerance for pain. Once TVUS returned, ordered toradol which pt was agreeable with trying Abdominal Pain Fem Course/Dx - Course Course Of Treatment: Patient presents with right sided abdominal pain since yesterday. This preceded by decreased Sit tight since Monday. She was sent here from [facility] to rule out appendicitis. Her labs are without elevated wbc's, CRP, lactic acid and her other digestive enzymes are within normal limits. Although she reports 8 of 10 pain, she looks comfortable on stretcher and vital signs are within normal limits. Her CT scan reports it does not visualize the appendix due to gastric contraction however there are no secondary findings of inflammation/fluid about the appendix to indicate appendicitis. She is also found to have persistent right ovarian cyst on both CT and ultrasound and persistent abnormal uterine findings on ultrasound - both studies compared to previous studies from February 2017. Reviewed case with Dr. Tejada who agrees this is most likely from ovarian cysts and abnormal uterine findings. No further workup necessary here today however patient needs follow-up with [facility] for repeat imaging and better investigation of her abnormal uterine findings, most specifically to rule out malignancy. Discussed with patient who agrees to plan. Also reviewed danger signs and symptoms of when to return the emergency Department. - Diagnoses Provider Diagnoses: Ovarian cyst, Abnormal tissue in the uterus Discharge - Sign-Out/Discharge Documenting (check all that apply): Patient Departure - Discharge Plan Condition: Stable Disposition: HOME Prescriptions: traMADol TAB* [Ultram*] 50 mg PO Q6HR PRN #15 tab MDD 4 PRN Reason: Pain Patient Education Materials: Ovarian Cyst (ED), Acute Abdominal Pain (ED) Forms: *Work Release Referrals: Natali Frausto MD [Medical Doctor] - Additional Instructions: The cause of your abdominal pain is suspected to be from your ovarian cyst and possibly your abnormal uterine findings. It is important that you follow-up with a biomedical manager for repeat ultrasound. Call tomorrow to schedule an appointment. You may take aleve 500mg every 12 hours with food alternating with tramadol as needed for pain. Also use a warm pack and hot bath soak. *If in the meantime you develop increasing pain, heavy vaginal bleeding, fatigue , vomiting, fevers or chills return the emergency Department. - Billing Disposition and Condition Condition: STABLE Disposition: Home
[2017-11-06 10:04] LABS: INR 0.98 (0.77-1.02)
[2017-11-06] MEDS ORDERED: Morphine VIAL* 10 MG/ML 1 ML VIAL ONE (10:05)
[2017-11-06 10:12] LABS: EGFR Non-African American 78.4 (>60)
[2017-11-06] MEDS ORDERED: Iohexol 300* (CONTRAST) 10 ML SDV IV ONE (10:34)
--- NOTE | 2017-11-06 12:51 | RAD ---
CLINICAL HISTORY: RLQ pain, + Rovsing COMPARISON: February 28, 2017 TECHNIQUE: Multiple contiguous axial CT scans were obtained of the abdomen and pelvis after the administration of intravenous contrast. Coronal and sagittal multiplanar reformations are submitted for review. FINDINGS: LUNG BASES: The lung bases are clear. LIVER: The liver is diffusely low in attenuation compared to the spleen. There are no focal hepatic parenchymal masses. BILE DUCTS: There is no intrahepatic or extrahepatic biliary dilatation. GALLBLADDER: The gallbladder is normal, without pericholecystic inflammatory change. PANCREAS: The pancreas is normal, without mass or ductal dilatation. SPLEEN: Normal in size and appearance. UPPER GI TRACT: Evaluation of the gastrointestinal tract is limited by incomplete gastric distention. The upper GI tract is unremarkable. SMALL BOWEL AND MESENTERY: The small bowel is normal in contour, course, and caliber. There is no obstruction or dilatation. COLON: The colon is normal in contour, course, caliber. There is no pericolonic inflammatory change. The appendix is not clearly visualized. There is no inflammatory change within the right lower quadrant. ADRENALS: Normal bilaterally. KIDNEYS: The kidneys are normal in shape, size, contour, and axis. There is no hydronephrosis or nephrolithiasis. BLADDER: The bladder is smooth in contour. PELVIC ORGANS: The uterus and adnexa are grossly normal for technique. There is a 1.6 cm cyst of the right ovary. AORTA: The aorta is normal. IVC: Unremarkable LYMPH NODES: There is no lymphadenopathy by size criteria. ABDOMINAL WALL: There is no evidence for abdominal wall hernia. BONES AND SOFT TISSUES: There are mild diffuse degenerative changes. OTHER: None IMPRESSION: 1. THE APPENDIX IS NOT WELL-VISUALIZED. THERE IS NO INFLAMMATORY CHANGE WITHIN THE RIGHT LOWER QUADRANT. 2. 1.6 CM RIGHT OVARIAN CYST. 3. FATTY INFILTRATION OF THE LIVER.
[2017-11-06 13:51] VITALS: BP 115/65
--- NOTE | 2017-11-06 14:08 | RAD ---
INDICATION: Pelvic pain evaluate for torsion of the right ovary. COMPARISON: The patient is made with a prior pelvic ultrasound from February 28, 2017. TECHNIQUE: Multiple real-time transvaginal images of the pelvis were obtained. FINDINGS: The uterus is normal in size, shape and echogenicity. The uterus measured 9.4 x 5.2 x 6.9 cm. The endometrial echo is abnormally thickened measuring up to 2.1 cm in thickness. There is a cystic structure present within the endometrial cavity measuring 0.5 x 0.9 x 0.5 cm which appears similar to the prior study. The right ovary measured 3.7 x 2.5 x 3.0 cm. The left ovary measured 2.7 x 1.3 x 2.3 cm. There is vascular flow within both ovaries. There is a hypoechoic structure present within the right ovary measuring 2.2 x 1.5 x 2.4 cm possibly representing a complex cyst. No free intraperitoneal fluid is seen. IMPRESSION: 1. ABNORMALLY THICKENED ENDOMETRIUM WITH CYSTIC STRUCTURE RAISING THE POSSIBILITY OF ENDOMETRIAL HYPERPLASIA OR CARCINOMA. RECOMMEND GYNECOLOGIC CONSULTATION. 2. 2.4 CM HYPOECHOIC STRUCTURE WITHIN THE RIGHT OVARY POSSIBLY REPRESENTING A COMPLEX CYST. RECOMMEND A FOLLOW-UP PELVIC ULTRASOUND IN 1-2 MONTHS TIME TO FOR FURTHER EVALUATION. 3. NO EVIDENCE FOR OVARIAN TORSION.
[2017-11-06] MEDS ORDERED: Ketorolac INJ* 30 MG/ML 1 ML VIAL IV PUSH ONE (14:11)
== END 2017-11-06 14:35 | disposition home or self-care (01) ==
LOC: ED 09:07
DX: N83.201 Unspecified ovarian cyst, right side (principal); N85.9 Noninflammatory disorder of uterus, unspecified; Z87.42 Personal history of other diseases of the female genital tract
CPT/HCPCS: 36415; 74177; 76830; 80053; 81003; 83605; 83690; 83735; 84702; 85025; 85610; 85730; 86140; 96374; 96375; 99283; J1885; J2270; J2405; Q9967

== ENCOUNTER 2018-04-20 08:29 | Emergency (ER) | payer SELFPAY ==
[2018-04-20 08:35] VITALS: BP 122/76
--- NOTE | 2018-04-20 09:50 | UC ---
Skin Complaint HPI - HPI Summary HPI Summary: 37 yo female presents with mouth sores. She tells me that 2 days ago she had a headache, felt fatigued, and had some body aches. Yesterday these symptoms resolved, but developed right sided facial pain that was mildly tender to light touch and felt like a "sharp/burning" sensation. Today the right sided facial discomfort is still presents and she noticed some red sores on the right inside of her mouth that are painful. Denies fever, chills, sinus symptoms, sore throat , recent illness. - History of Current Complaint Chief Complaint: UCGeneralIllness Time Seen by Provider: 04/20/18 09:50 Stated Complaint: SPOTS IN MOUTH Hx Obtained From: Patient Hx Last Menstrual Period: 04/13/18 Onset/Duration: Gradual Onset Onset Severity: Mild Current Severity: Moderate Pain Intensity: 6 Pain Scale Used: 0-10 Numeric - Allergy/Home Medications Allergies/Adverse Reactions: Allergies Allergy/AdvReac Type Severity Reaction Status Date / Time No Known Allergies Allergy Verified 04/20/18 08:35 PMH/Surg Hx/FS Hx/Imm Hx - Additional Past Medical History Additional PMH: None Other History Of: Negative For: Anticoagulant Therapy - Surgical History Surgical History: Yes Surgery Procedure, Year, and Place: LEFT THUMB ~ 1994; - Family History Known Family History: Positive: Diabetes Family History: Cancer - Social History Occupation: Employed Full-time Lives: With Family Alcohol Use: Occasionally Alcohol Amount: 5-6 on weekends Substance Use Type: None Smoking Status (MU): Never Smoked Tobacco - Immunization History Most Recent Influenza Vaccination: unsure Most Recent Tetanus Shot: unsure Most Recent Pneumonia Vaccination: never Review of Systems All Other Systems Reviewed And Are Negative: Yes Constitutional: Positive: Negative Skin: Positive: Negative Eyes: Positive: Negative ENT: Positive: Other - Oral lesions Respiratory: Positive: Negative Cardiovascular: Positive: Negative Gastrointestinal: Positive: Negative Neurological: Positive: Negative Psychological: Positive: Negative Physical Exam - Summary Physical Exam Summary: GENERAL: NAD. WDWN. No pain distress. SKIN: No rashes, sores, lesions, or open wounds. HEENT: Head: AT/NC Eyes: EOM intact. Conjunctiva clear without inflammation or discharge. Ears: Hearing grossly normal. TMs intact, no bulging, erythema, or edema. Nose: Nasal mucosa pink and moist. NTTP maxillary and frontal sinus. Throat: Oral mucosa n right with four 2mm vesicles with erythematous bases. TTP. No drainage. Posterior oropharynx without exudates, erythema, or tonsillar enlargement. Uvula midline. NECK: Supple. Nontender. No lymphadenopathy. CHEST: CTAB. No r/r/w. No accessory muscle use. Breathing comfortably and in no distress. CV: RRR. Without m/r/g. Pulses intact. Cap refill <2seconds NEURO: Alert. PSYCH: Age appropriate behavior. Triage Information Reviewed: Yes Vital Signs: Initial Vital Signs Temp 96.6 F 04/20/18 08:32 Pulse 78 04/20/18 08:32 Resp 16 04/20/18 08:32 BP 122/76 04/20/18 08:32 Pulse Ox 100 04/20/18 08:32 Vital Signs Reviewed: Yes Course/Dx - Course Course Of Treatment: Suspect viral illness vs shingles. 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 - Diagnoses Provider Diagnosis: Shingles Discharge - Sign-Out/Discharge Documenting (check all that apply): Patient Departure All imaging exams completed and their final reports reviewed: No Studies - Discharge Plan Condition: Stable Disposition: HOME Prescriptions: Lidocaine 2% VISCOUS* [Xylocaine 2% Viscous*] 15 ml SWISH SPIT Q6H PRN #250 ml PRN Reason: Pain ValACYclovir (*) [Valtrex 1 GM(*)] 1 gm PO TID #21 tab Patient Education Materials: Shingles (ED) Forms: *Work Release Referrals: Aly SHRESTHA,Devendra Pineda [Primary Care Provider] - Additional Instructions: If you develop a fever, shortness of breath, chest pain, new or worsening symptoms - please call your PCP or go to the ED. - Billing Disposition and Condition Condition: STABLE Disposition: Home
== END 2018-04-20 10:29 | disposition home or self-care (01) ==
LOC: UCEAST 08:29
DX: B02.9 Zoster without complications (principal)
CPT/HCPCS: 99212; G0463

== ENCOUNTER 2018-07-12 08:42 | Emergency (ER) | payer SELFPAY ==
[2018-07-12 08:53] VITALS: BP 117/72
--- NOTE | 2018-07-12 09:56 | UC ---
General HPI - HPI Summary HPI Summary: Here for c/o red itchy eye that started yesterday, mainly on left side - woke up this morning with purulent drainage over her eye. right eye starting to water. No vision changes. No recent URI. States two weeks ago she had a ' shingles' in her mouth. Meds : reviewed. Works at [employer] - History of Current Complaint Chief Complaint: UCEye Stated Complaint: EYE ISSUE Time Seen by Provider: 07/12/18 09:49 Hx Last Menstrual Period: Pain Intensity: 6 - Allergy/Home Medications Allergies/Adverse Reactions: Allergies Allergy/AdvReac Type Severity Reaction Status Date / Time No Known Allergies Allergy Verified 07/12/18 08:53 PMH/Surg Hx/FS Hx/Imm Hx Previously Healthy: Yes Other History Of: Negative For: Anticoagulant Therapy - Surgical History Surgical History: Yes Surgery Procedure, Year, and Place: LEFT THUMB ~ 1994;. right ovary removal - Family History Known Family History: Positive: Diabetes Family History: Cancer - Social History Alcohol Use: Occasionally Alcohol Amount: 5-6 on weekends Substance Use Type: None Smoking Status (MU): Never Smoked Tobacco - Immunization History Most Recent Influenza Vaccination: unsure Most Recent Tetanus Shot: unsure Most Recent Pneumonia Vaccination: never Review of Systems All Other Systems Reviewed And Are Negative: Yes Eyes: Positive: Drainage, Eye Redness Physical Exam Triage Information Reviewed: Yes Appearance: Well-Appearing Vital Signs: Initial Vital Signs Temp 97.7 F 07/12/18 08:48 Pulse 82 07/12/18 08:48 Resp 18 07/12/18 08:48 BP 117/72 07/12/18 08:48 Pulse Ox 100 07/12/18 08:48 Vital Signs Reviewed: Yes Eyes: Positive: Conjunctiva Inflamed, Other: - worse on left, no purulent drainage ENT: Positive: Normal ENT inspection Dental Exam: Normal Neck: Positive: Supple, Nontender Respiratory: Positive: Lungs clear, Normal breath sounds Cardiovascular: Positive: RRR, No Murmur Course/Dx - Course Course Of Treatment: This is a 38 yr old with red itchy eyes Assessment Conjunctivitis Plan REcommend start drops as prescribed to the eye REcommend good hand washing If symptoms persist or worsen, follow up with PCP or return to urgent care - Diagnoses Provider Diagnosis: Conjunctivitis Discharge - Sign-Out/Discharge Documenting (check all that apply): Patient Departure All imaging exams completed and their final reports reviewed: No Studies - Discharge Plan Condition: Good Disposition: HOME Prescriptions: Polymyx/Trimethoprim OPTH* [Polytrim OPHTH*] 2 drop BOTH EYES Q8HR #1 btl Patient Education Materials: Conjunctivitis (ED) Forms: *Work Release Referrals: Aly SHRESTHA,Devendra Pineda [Primary Care Provider] - Additional Instructions: REcommend start drops as prescribed to the eye REcommend good hand washing If symptoms persist or worsen, follow up with PCP or return to urgent care - Billing Disposition and Condition Condition: GOOD Disposition: Home
== END 2018-07-12 10:00 | disposition home or self-care (01) ==
LOC: UCEAST 08:42
DX: H10.9 Unspecified conjunctivitis (principal)
CPT/HCPCS: 99212; G0463

== ENCOUNTER 2018-10-01 17:14 | Emergency (ER) | payer SELFPAY ==
[2018-10-01 17:24] VITALS: BP 114/72
--- NOTE | 2018-10-01 17:51 | UC ---
Lower Extremity/Ankle HPI - HPI Summary HPI Summary: Patient presents to urgent care for evaluation of one month's worth of intermittent progressive left foot pain. Patient states the pain times the pain radiates across the dorsum of her foot and up her medial aspect of her ankle. Patient has taken Tylenol intermittently with little improvement. Patient states she notices worse when she is on her feet walking all day. Patient states sometimes she walks with a limp. Pain is not related to shoes. Patient does not do activities or any hobbies where she is on her feet. Patient denies any erythema. No redness. No trauma. Patient without history of similar. Patient medications reviewed this visit. - History of Current Complaint Chief Complaint: UCLowerExtremity Stated Complaint: FOOT PAIN Hx Obtained From: Patient Hx Last Menstrual Period: 09/09/18 Pain Intensity: 10 - Allergies/Home Medications Allergies/Adverse Reactions: Allergies Allergy/AdvReac Type Severity Reaction Status Date / Time No Known Allergies Allergy Verified 10/01/18 17:24 PMH/Surg Hx/FS Hx/Imm Hx Previously Healthy: Yes Other History Of: Negative For: Anticoagulant Therapy - Surgical History Surgical History: Yes Surgery Procedure, Year, and Place: LEFT THUMB ~ 1994;. right ovary removal - Family History Known Family History: Positive: Diabetes, Non-Contributory Family History: Cancer - Social History Occupation: Employed Full-time Lives: With Family Alcohol Use: Occasionally Alcohol Amount: 5-6 on weekends Substance Use Type: None Smoking Status (MU): Never Smoked Tobacco - Immunization History Most Recent Influenza Vaccination: unsure Most Recent Tetanus Shot: unsure Most Recent Pneumonia Vaccination: never Review of Systems All Other Systems Reviewed And Are Negative: Yes Constitutional: Positive: Negative Skin: Positive: Negative Musculoskeletal: Positive: Other: - left foot Physical Exam - Summary Physical Exam Summary: Vital Signs Reviewed: Yes A+Ox3, no distress Eyes: Conjunctiva Clear ENT: Hearing grossly normal neck: supple Respiratory: Positive: No respiratory distress, No accessory muscle use Cardiovascular: skin color reflect adequate perfusion 2+ DP, PT CBT <2 sec Musculoskeletal Exam: + SLE + flex/ext knee, ankle movement of ankle causes radiation to 1st MTP. + TTP distal 1st MT to MTP no warmth, erythema, edema, abraison. No pain malleoli Neurological: Positive: Alert, ambulatory without difficulty + gross sensation throughout foot Psychological: Positive: Normal Response To Family Skin: Positive: no rash, no ecchymosis Triage Information Reviewed: Yes Vital Signs: Initial Vital Signs Temp 98.8 F 10/01/18 17:21 Pulse 78 10/01/18 17:21 Resp 18 10/01/18 17:21 BP 114/72 10/01/18 17:21 Pulse Ox 100 10/01/18 17:21 Re-Evaluation - Re-Evaluation First Eval Change: Unchanged - no fx with to wet read - pt aware of radiology overread tomorrow pt requesting trying cam boot prior to crutches -works in daycare Will try - if not improved, will crutch/jayce wrap Lower Extremity Course/Dx - Course Course Of Treatment: Patient presents for evaluation of progressive 1 month pain the base of the first metatarsal in her left foot. Patient eye trauma. Patient states is worse with standing and walking appropriately time. Patient has intermittently taken Tylenol with improvement. No trauma no warmth no history of gout. On exam vital signs stable. Patient does have focal discomfort along the mid to distal end of the first metatarsal. Patient with pain that radiates to the dorsum of her foot and proximal medial calf with dorsi extension. Suspect related to tendonitis. If neg, will recommend motrin/apap cructhes/jayce wrap, prednisone f/u with sports medicine pt in agreement - Differential Dx/Diagnosis Provider Diagnosis: Left foot pain Discharge - Sign-Out/Discharge Documenting (check all that apply): Patient Departure All imaging exams completed and their final reports reviewed: No - Discharge Plan Condition: Stable Disposition: HOME Prescriptions: predniSONE [Prednisone 20 MG TAB] 20 mg PO DAILY #5 tablet Patient Education Materials: Tendinitis (ED) Referrals: [facility] [Provider Group] (Call tomorrow for a follow-up appointment this week) Aly SHRESTHA,Devendra Pineda [Primary Care Provider] - Additional Instructions: - Okay to alernate ibuprofen (Advil, motrin) and tylenol every 3hours for pain. Take with food. Do NOT take for more than 4-5 days - Take prednisone daily as prescribed - take with food - wear walking boot for comfort and support - if you limp, you should use crutches - contact the sports medicine office tomorrow morning to schedule a follow-up appointment this week - Billing Disposition and Condition Condition: STABLE Disposition: Home
--- NOTE | 2018-10-01 19:31 | UC ---
- Progress Note Progress Note: Patient Name: TESFAYE RICKS Medical Record#: [id number] Ordering Physician: Salima Silverman MD Acct.#: [id number] : 1980 Age: 38 Sex: F Location: [facility] Exam Date: 10/01/181799 ADM Status: DEP ER Order Information: FOOT LEFT 3+ VWS Accession Number: [id number] CPT: 78776 INDICATION: Pain at the first metatarsophalangeal joint extending to the dorsal medial left ankle COMPARISON: None. TECHNIQUE: 3 views of the left foot were obtained. FINDINGS: The adequately corticated bones are properly aligned. Joint spaces appear maintained. No fracture, dislocation or focal bony abnormality is seen. IMPRESSION: Normal radiograph of the left foot. If the patient's symptoms persist, follow-up imaging is recommended. <Electronically signed by Bertrand Alexis MD in OV> 10/01/181845 Dictated By: Bertrand Alexis MD Dictated Date/Time: 10/01/181845 Transcribed Date/Time: 10/01/181844 Copy to: CC:Salima Silverman MD; Devendra Lu MD Imaging - [facility] - [facility] [address] [place] [address] ph ([phone]) ph ([phone]) ph ([phone]) This report is only to be considered final once signed by the Provider(s) as displayed in the "<Electronically Signed by >" field (s). Absence of a signature indicates the report is in a draft status and still needs to be finalized. In the event this document was created by someone other than the signing Provider, the individual initiating the document will be listed in the "Entered by:" or "Dictated by:" toribio. 1 of 1 Course/Dx - Diagnoses Provider Diagnoses: Left foot pain Discharge - Sign-Out/Discharge Documenting (check all that apply): Post-Discharge Follow Up All imaging exams completed and their final reports reviewed: Yes - Discharge Plan Condition: Stable Disposition: HOME Prescriptions: predniSONE [Prednisone 20 MG TAB] 20 mg PO DAILY #5 tablet Patient Education Materials: Tendinitis (ED) Referrals: [facility] [Provider Group] (Call tomorrow for a follow-up appointment this week) Aly SHRESTHA,Devendra Pineda [Primary Care Provider] - Additional Instructions: - Okay to alernate ibuprofen (Advil, motrin) and tylenol every 3hours for pain. Take with food. Do NOT take for more than 4-5 days - Take prednisone daily as prescribed - take with food - wear walking boot for comfort and support - if you limp, you should use crutches - contact the sports medicine office tomorrow morning to schedule a follow-up appointment this week - Billing Disposition and Condition Condition: STABLE Disposition: Home
== END 2018-10-01 18:35 | disposition home or self-care (01) ==
LOC: UCEAST 17:14
DX: M79.672 Pain in left foot (principal)
CPT/HCPCS: 99212; G0463

== ENCOUNTER 2018-11-19 08:18 | Observation (INO) | payer OTHER ==
--- NOTE | 2018-11-19 08:34 | ED ---
HPI Chest Pain - HPI Summary HPI Summary: The patient is a 38 y/o F presenting to [facility] accompanied by friend with a chief complaint of gradual onset left-sided numbness and left anterior CP this morning around 0700. She reports that she began having left-sided facial numbness yesterday that has been constant since onset. Today, while driving to work, she began experieicning left anterior CP and LUE numbness and tingling, while is all still present in the ED. There is no lower extremity numbness noted. Her current symptoms are rated 9/10 and is described as a sharp sensation on the chest, but the numbness feels worse than the CP. Deep breathing aggravates the pain, and there arent any alleviating factors. She additionally c/o a mild BECK. She denies any fever, chills, diaphoresis, erythema of eyes, ear ache, sore throat, SOB, cough, vomiting, abdominal pain, dysuria, hematuria, myalgia, edema, rash, or dizziness. She states she has intermittent episodes of stress recently. She hasn't fallen, and she had been traveling a few weeks ago but hasn't been resting more than usual. Not taking control. PMHx: asthma, DVT, shingles. FHx: DM, cardiac disease (grandfather), blood clots (father). Nonsmoker, occasional EtOH, no substance use. - History of Current Complaint Time Seen by Provider: 11/19/18 08:24 Hx Obtained From: Patient Hx Last Menstrual Period: 09/09/18 Onset/Duration: Started Minutes Ago - around 0700, Still Present Timing: Lasting Minutes - around 0700 Initial Severity: Moderate Current Severity: Moderate Pain Intensity: 9 Pain Scale Used: 0-10 Numeric Chest Pain Location: Left Anterior Chest Pain Radiates: No Character: Sharp/Stabbing Aggravating Factor(s): Deep Breaths Alleviating Factor(s): Nothing Associated Signs and Symptoms: Positive: Chest Pain, Headaches - mild, Numbness - left facial and LUE, Nausea, Other: - NEGATIVE: diaphoresis, erythema of eyes , ear ache, sore throat, dysuria, hematuria, myalgia, rash, lower extremity numbness. Negative: Dizziness, Shortness of Breath, Fever, Chills, Cough, Abdominal Pain, Vomiting, Edema - Allergy/Home Medications Allergies/Adverse Reactions: Allergies Allergy/AdvReac Type Severity Reaction Status Date / Time No Known Allergies Allergy Verified 11/19/18 08:43 PMH/Surg Hx/FS Hx/Imm Hx Endocrine/Hematology History: Denies: Hx Anticoagulant Therapy, Hx Blood Disorders, Hx Diabetes Cardiovascular History: Reports: Hx Deep Vein Thrombosis - in 2008 Denies: Hx Hypertension, Hx Pacemaker/ICD Respiratory History: Reports: Hx Asthma GI History: Reports: Other GI Disorders - umbilical hernia Denies: Hx Cirrhosis, Hx Crohn's Disease, Hx Diverticulosis, Hx Gall Bladder Disease, Hx Gastroesophageal Reflux Disease, Hx Gastrointestinal Bleed, Hx Hiatal Hernia, Hx Irritable Bowel, Hx Obstructive Bowel, Hx Ulcer History: Reports: Other Problems/Disorders - ovarian cyst Denies: Hx Renal Disease Sensory History: Denies: Hx Hearing Aid Psychiatric History: Denies: Hx Panic Disorder - Surgical History Surgical History: Yes Surgery Procedure, Year, and Place: LEFT THUMB ~ 1994;. right ovary removal Infectious Disease History: Yes Infectious Disease History: Reports: Hx Shingles Denies: Traveled Outside the [place] in Last 30 Days - Family History Known Family History: Positive: Cardiac Disease - grandfather, Diabetes, Other - blood clots (father) Family History: Cancer - Social History Alcohol Use: Occasionally Alcohol Amount: 5-6 on weekends Hx Substance Use: No Substance Use Type: Reports: None Hx Tobacco Use: No Smoking Status (MU): Never Smoked Tobacco Review of Systems Negative: Fever, Chills, Skin Diaphoresis Negative: Erythema Negative: Sore Throat, Ear Ache Positive: Chest Pain - left anterior, doesn't radiate Negative: Shortness Of Breath, Cough Positive: Nausea. Negative: Abdominal Pain, Vomiting Negative: dysuria, hematuria Negative: Myalgia, Edema Negative: Rash Neurological: Other - NEGATIVE: dizziness Positive: Numbness - left side of face and LUE; no numbness in either lower extremity All Other Systems Reviewed And Are Negative: Yes Physical Exam - Summary Physical Exam Summary: Constitutional: Well-developed, Well-nourished, Alert. (-) Distressed Skin: Warm, Dry HENT: Normocephalic; Atraumatic Eyes: Conjunctiva normal Neck: Musculoskeletal ROM normal neck. (-) JVD, (-) Stridor, (-) Tracheal deviation Cardio: Rhythm regular, rate normal, Heart sounds normal; Intact distal pulses; The pedal pulses are 2+ and symmetric. Radial pulses are 2+ and symmetric. (-) Murmur Pulmonary/Chest wall: Mild costochondral tenderness at the third costochondral junction, Movement of the arm and chest wall does not exacerbate her pain. Effort normal. (-) Respiratory distress, (-) Wheezes, (-) Rales Abd: Soft, (-) tenderness, (-) Distension, (-) Guarding, (-) Rebound Musculoskeletal: (-) Edema Lymph: (-) Cervical adenopathy Neuro: Alert, Oriented x3, Strength normal, Cranial nerves II-XII are grossly intact. (-) Dysmetria, (-) Nystagmus, (-) Ataxia by finger to nose testing, (-) Sensory deficit. Psych: Mood and affect Normal Triage Information Reviewed: Yes Vital Signs On Initial Exam: Initial Vitals Temp Pulse Resp BP Pulse Ox 98.0 F 66 16 121/73 100 11/19/18 08:26 11/19/18 08:26 11/19/18 08:26 11/19/18 08:26 11/19/18 08:26 Vital Signs Reviewed: Yes Diagnostics - Vital Signs Vital Signs Temp Pulse Resp BP Pulse Ox 11/19/18 08:26 98.0 F 66 16 121/73 100 - Laboratory Result Diagrams: 11/19/18 08:35 11/19/18 08:35 Lab Statement: Any lab studies that have been ordered have been reviewed, and results considered in the medical decision making process. - Radiology CXR Summary of Radiographic Findings: Impression: No acute cardiopulmonary process by radiograph. ED physician has reviewed this report. - CT Chest/Thorax CTA CT Interpretation Completed By: Radiologist Summary of CT Findings: Impression: No evidence for pulmonary embolism. ED physician has reviewed this report. Brain CT CT Interpretation Completed By: Radiologist Summary of CT Findings: Impression: No evidence of intracranial mass or hemorrhage is noted. ED physician has reviewed this report. - EKG 0824 Cardiac Rate: NL - 70 bpm EKG Rhythm: Sinus Rhythm Summary of EKG Findings: NSR at 70 bpm. No STEMI. Re-Evaluation - Re-Evaluation First Eval Re-Evaluation Time: 11:45 Change: Improved Comment: Patient's chest discomfort has completely resolved, but the facial and arm numbness remain. Second Eval Re-Evaluation Time: 13:25 Comment: I spoke with the patient concerning results and Dr. Vann's recommendation for admission. Chest Pain Course/Dx - Course Course Of Treatment: Patient is a 38 y/o F with cc of left facial numbness onset yesterday that has continued into today with new onset of left anterior CP and LUE numbness and tingling, as well as nausea and a mild headache around 0700. Denies diaphoresis, ear ache, SOB, cough, dysuria, hematuria, lower extremity numbness, rash, or dizziness. Recent intermittent episodes of stress with long distance traveling a few weeks ago. Hx of DVT 10 years ago, shingles. FHx: cardiac disease, blood clots. Nonsmoker, no control. Upon physical exam, the patient exhibits mild costochondral tenderness at the third costochondral junction without exacerbation of the pain with movement of the arm and chest wall. Blood work is primarily within normal limits but reveals MCH of 34, MPV of 6.6, and glucose of 103. First and second troponins are 0.00. In the ED course, the patient was administered Toradol 15mg IV for pain relief. EKG at 0824 reveals NSR at 70 bpm without any ischemic changes. Chest x-ray impression is negative for acute cardiopulmonary disease. Chest/Thorax CTA with contrast impression is negative for pulmonary embolism. Brain CT impression is negative for evidence of intracranial mass or hemorrhage. Dr. Vann, neurology, will come see the patient in the ED. After consulting with the patient, he believes that the patient should be admitted for stroke workup since the facial and arm numbness is still present in the ED. The chest pain has resolved. Dr. Ferro, hospitalist, accepts the patient for admission at 1430. Dr. Vann will follow up with MRI results. Patient is agreeable with admission plan. She is diagnosed with paresthesias. - Diagnoses Provider Diagnoses: Paresthesia - Provider Notifications Discussed Care Of Patient With: Katty Vann - neurology Time Discussed With Above Provider: 11:29 Instructed by Provider To: Other - Dr. Vann will come see the patient in the ED. After consultation at 1320, he recommends admission for stroke workup. Dr. Ferro, hospitalist, accepts the patient for admission at 1430. Discharge ED - Sign-Out/Discharge Documenting (check all that apply): Patient Departure - Patient is accepted for admission by Dr. Ferro. Patient Received Moderate/Deep Sedation with Procedure: No - Discharge Plan Condition: Stable Disposition: ADMITTED TO [facility] - Billing Disposition and Condition Condition: STABLE Disposition: Admitted to [facility] - Attestation Statements Document Initiated by Dainaibe: Yes Documenting Scribe: Heather Pandya Provider For Whom Tiffanie is Documenting (Include Credential): Dr. Braydon Triana MD Scribe Attestation: Heather Tyson scribed for Dr. Braydon Triana MD on 12/04/18 at 1416. Scribe Documentation Reviewed: Yes Provider Attestation: The documentation as recorded by the Heather gonzalez accurately reflects the service I personally performed and the decisions made by me, Dr. Braydon Triana MD Status of Scribe Document: Viewed
[2018-11-19 08:44] LABS: ABS Basophils 0.1 10^3/ul (0-0.2); ABS Eosinophils 0.2 10^3/ul (0-0.6); ABS Lymphocytes 1.6 10^3/ul (1.0-4.8); ABS Monocytes 0.3 10^3/ul (0-0.8); ABS Neutrophils 2.1 10^3/ul (1.5-7.7); Eosinophil % 3.7 %; Hematocrit 39 % (35-47); Hemoglobin 13.6 g/dL (12.0-16.0); Lymphocyte % 37.5 %; Mean Corpuscular HGB Conc 35 g/dL (31-36); Mean Corpuscular Hemoglobin 34 pg (27-31); Mean Corpuscular Volume 96 fL (80-97); Mean Platelet Volume 6.6 fL (7.4-10.4); Nucleated Red Blood Cells % 0.1; Platelet Count 322 10^3/uL (150-450); Red Blood Count 4.03 10^6 /uL (3.70-4.87); Red Cell Distribution Width 12 % (10-15); White Blood Count 4.3 10^3/uL (3.5-10.8)
[2018-11-19 08:51] LABS: INR 0.98 (0.82-1.09)
[2018-11-19] MEDS ORDERED: Ketorolac INJ* 30 MG/ML 1 ML VIAL IV PUSH ONE (08:54)
[2018-11-19 09:02] LABS: Albumin 4.2 g/dL (3.2-5.2); Albumin/Globulin Ratio 1.6 (1-3); BUN/Creatinine Ratio 13.5 (8-20); Calcium 9.1 mg/dL (8.6-10.3); EGFR African American 85.9 (>60); Globulin 2.7 g/dL (2-4); Potassium 4.2 mmol/L (3.5-5.0); Total Bilirubin 0.5 mg/dL (0.2-1.0); Total Protein 6.9 g/dL (6.4-8.9)
[2018-11-19] MEDS ORDERED: Iohexol 350* (CONTRAST) 500 ML MDV IV ONE (10:03)
[2018-11-19 14:26] LABS: TSH (Thyroid Stimulating Horm) 1.62 mcIU/mL (0.34-5.60)
--- NOTE | 2018-11-19 14:47 | CONS ---
NEUROLOGY CONSULTATION NOTE: DATE OF CONSULT: 11/19/18 CONSULTING PROVIDER: Dr. Braydon Triana. REASON FOR CONSULT: Numbness on the left side. CHIEF COMPLAINT: Face and arm numbness on the left. HISTORY OF PRESENT ILLNESS: Ms. 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 The symptoms started at 6 a.m. yesterday. She woke up with the symptoms. The numbness progressed from the face down to the left side of the arm. She feels that the left side is heavy. She denied any headaches or neck pain. She has associated symptoms of mild nausea and feeling fatigue. She denied symptoms in the left leg. She also had associated symptoms of chest pain. She denied shortness of breath. The patient has a history of questionable DVT in the past. She also has had similar neurological complaints in addition to change in vision in 2014 where she was extensively evaluated by Dr. Ashli Brock. Her diagnosis at that time was nonvascular related neurological complaints. Migraine phenomenon was entertained. Stroke was ruled out. NIH Stroke Scale 1 for numbness on the left side of the face. PAST MEDICAL HISTORY: Four vaginal births with no complications. She has a history of asthma. She has questionable history of DVT. PAST SURGICAL HISTORY: She had a D and C and 1 oophorectomy in the past. MEDICATIONS: She takes no medications at home. ALLERGIES: No known drug allergies. FAMILY HISTORY: She denied any family history of stroke or seizures. Her father has hypertension. Her mother has anemia. SOCIAL HISTORY: The patient is . She has 4 children. 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 She denied tobacco or alcohol use. She denied any recreational drug use. REVIEW OF SYSTEMS: A 14-point review of systems was obtained and otherwise negative except for what was mentioned in the HPI. PHYSICAL EXAM: Vitals: Temperature of 98.0, heart rate of 63, respiratory rate of 19, oxygen saturation of 98%, blood pressure of 112/75. General: Well- appearing, well-nourished female, in no acute distress. Head: Atraumatic, normocephalic. Eyes: Conjunctivae/corneas are clear. Neck is supple and symmetrical with no carotid bruits. No lymphadenopathy. Cardiac: Regular rate and rhythm with normal S1, S2. No murmurs. Respiratory: Clear to auscultation bilaterally. No wheezing or rhonchi. Extremities: Normal range of motion. No hammertoes or high arches. Skin: No skin lesions or lacerations. Psych: Broad affect, normal mood. Easy to establish rapport. Neurological: Mental Status: Alert and oriented to person, place, time, general circumstances. Speech and language including expression, comprehension , and repetition were assessed and found to be normal. Cranial Nerves: Pupils are equal, round, and reactive to light. Extraocular muscles are intact. Normal confrontation testing. Reduced sensation to light touch and pinprick on the left side of the face, mostly in the V2 distribution. No facial asymmetry. Tongue is symmetrical and midline with no atrophy or fasciculation. Motor Examination: No abnormal movements or pronator drift. 5/5 strength in the upper and lower extremities. No fasciculation. She has normal strength in the lower extremities. Sensation is intact to light touch, pinprick, and vibratory sensation in all distal extremities. She has no splitting of the vibration sensation on the forehead. Proprioception is intact at the great toes. Normal vibration at the great toes measuring 15-16 seconds on the right and left respectively. Coordination: Normal yqvjxp-iw-gprb and yixy-iq-nbon testing. Gait: Normal stance and posture. No ataxia. Reflexes: 2+ in the brachioradialis, biceps, triceps, and upper extremities bilaterally and symmetrically; 3+ at the knees bilaterally and symmetrically; and 2+ at the ankle. Downgoing plantar responses. DIAGNOSTIC STUDIES/LAB DATA: WBC 4.3, hemoglobin 13.6, hematocrit of 39, platelet count of 322. INR 0.9. Sodium of 139, potassium 4.2. AST 15, ALT 13. Creatinine 0.89. CT of the head without contrast completed on 11/19/18 was personally reviewed. The report showed no acute intracranial abnormality. ASSESSMENT: Ms. Jessica Shahid is a 38-year-old female with a second episode of sudden onset left hemianesthesia involving the face and left upper extremity. On examination, the patient has reduced sensation to light touch, pinprick on the left side of the face. She had no splitting of the vibration on the forehead. She has slight symmetric hyperreflexia in the knees bilaterally. The differential diagnosis here is small lacunar stroke in the contralateral thalami, although this is unlikely given the patient's lack of risk factors. The only possible risk factors for hypercoagulable state would include her questionable history of deep venous thrombosis in the past. Otherwise, her ABCD2 score at this current moment is 2 for the duration of her symptoms. With ABCD2 score of 2, she is a low risk for stroke. Other differential diagnosis includes painless migraine headache or cervical spondylosis; however, with the latter diagnosis, she would not have any facial involvement. Lastly, we will evaluate for demyelinating disease given her age or for vitamin B12 deficiency. . RECOMMENDATIONS: I have ordered an MRI of the brain with and without contrast, MRA head, MRA neck, and MRI cervical spine without contrast. I also ordered vitamin B12, TSH, and Lyme titer to evaluate for any possible metabolic or infectious causes for her symptoms. If the workup is negative and she has no evidence of atherosclerotic disease, which I do not suspect, then her symptoms are likely related to a painless migraine phenomenon. Please do neuro checks every 4 hours. I also obtained a transthoracic echo with bubble study to evaluate for any ASD/PFO. DVT prophylaxis with SCDs or early ambulation. No need for PT/OT/UPHOLSTERER ASSEMBLY LINE evaluation and treatment given that the patient is minimally symptomatic. Please perform bedside speech evaluation. Hold all the aspirin and statin therapy for now given the low suspicion for stroke. I discussed these recommendations with Dr. Ferro. I will continue to follow. [id number]/[facility] #: [id number] MERCEDES
[2018-11-19] MEDS ORDERED: Acetaminophen TAB* 325 MG PO PRN (15:18)
[2018-11-19] MEDS ORDERED: Gadoteridol* (CONTRAST) 279.3 MG/ML 10 ML IV ONE (15:31)
--- NOTE | 2018-11-19 16:57 | ECHO ---
*[facility]* [place] [address] Fax #: [phone] Transthoracic Echocardiogram Patient: Jessica Shahid : 1980 Study Date: 11/19/2018 Age: 38 Gender: F HR: 63 bpm Height: 66 in /167.6 cm BSA: 1.88 m^2 Weight: 171.6 lb /78 kg BMI: 27.8 kg/m^2 *Chief Knowledge Officer: Anika Henley [facility] *Referring Physician: * Katty Vann *Reading Physician: * King Bhakta MD Indications: CVA. Chest Pain, unspecified. History: DVT, asthma. Conclusions Summary: - Left ventricle: The cavity size is normal. Wall thickness is normal. Systolic function is normal. The estimated ejection fraction is 50-55%. Wall motion is normal; there are no regional wall motion abnormalities. - Right ventricle: The cavity size is normal. Systolic function is normal. - Left atrium: The atrium is normal in size. - Atrial septum: Bubble study was negative - No significant valvular abnormalities noted. Recommendations: None prior for comparison at time of interpretation. Study data: Transthoracic echocardiogram. Procedure: Transthoracic echocardiography was performed. Image quality was good. A bubble study was performed. Complete 2D, spectral Doppler, and color flow Doppler. Location: Emergency department. Patient status: Inpatient. Patient room number: 3. Rhythm: Normal sinus rhythm. Findings Left ventricle: The cavity size is normal. Wall thickness is normal. Systolic function is normal. The estimated ejection fraction is 50-55%. Wall motion is normal; there are no regional wall motion abnormalities. Left ventricular diastolic function parameters are normal. Right ventricle: The cavity size is normal. Systolic function is normal. Left atrium: The atrium is normal in size. Right atrium: The atrium is normal in size. Atrial septum: Bubble study was negative Mitral valve: The leaflets are normal thickness. There is no evidence of stenosis. There is no significant regurgitation. Aortic valve: The valve is probably trileaflet. The leaflets are normal thickness. There is no evidence of stenosis. There is no significant regurgitation. Tricuspid valve: The leaflets are normal thickness. There is no evidence of stenosis. There is trace regurgitation. Pulmonic valve: Not well visualized. There is no significant regurgitation. Aorta: The aortic root appears normal. The aortic arch appears normal. Pericardium: There is no significant pericardial effusion. Pulmonary arteries: Not well visualized. Systolic pressure is within the normal range. Systemic veins: Inferior vena cava: The vessel is normal in size. There is (>= 50%) respiratory change in the IVC dimension. Measurements Left ventricle Value Ref Mitral valve Value Ref KATTY, LAX 4.6 cm 3.8 - 5.2 Peak E 0.86 m/sec ----- ESD, LAX 3.0 cm 2.2 - 3.5 Peak A 0.43 m/sec ----- FS, LAX 34 % 27 - 45 Decel time 195 ms ----- PW, ED, LAX (H) 1.0 cm 0.6 - 0.9 Peak grad, D 2.9 mm Hg ----- EF 63 % 54 - 74 Peak E/A ratio 2 ----- E', lat cassandra, TDI 14.6 cm/sec >=10.0 E/e', lat cassandra, 6 Pulmonic valve Value Ref TDI Peak v, S 0.76 m/sec ----- E', med cassandra, TDI 12.6 cm/sec >=7.0 Peak grad, S 2.0 mm Hg --- -- E/e', med cassandra, 7 TDI Tricuspid valve Value Ref E', avg, TDI 13.6 cm/sec TR peak v 2.2 m/sec <=2 .8 E/e', avg, TDI 6 <=14 Peak RV-RA grad, S 19 mm Hg --- -- LVOT Value Ref Aortic root Value Ref Peak cody, S 1.12 m/sec Root diam 2.5 cm <3.6 Peak grad, S 5 mm Hg Mean grad, S 2 mm Hg Ascending aorta Value Ref AAo AP diam, S 2.5 cm ----- Ventricular septum Value Ref IVS, ED 0.8 cm 0.6 - 0.9 Aortic arch Value Ref Arch diam 2.3 cm ----- Right ventricle Value Ref KATYT, LAX 3.2 cm Decending aorta Value Ref KATTY minor ax, A4C 2.4 cm 1.9 - 3.5 Lisa peak cody 0.87 m/sec ----- mid Pressure, S 27 mm Hg Pulmonary artery Value Ref Pressure, S 25.0 mm Hg ----- Left atrium Value Ref AP dim, ES 3.80 cm 2.70 - Inferior vena cava Value Ref 3.80 Diam 1.8 cm ----- ML dim, A4C 3.6 cm SI dim, A4C 5.0 cm Pulmonary veins Value Ref Vol/bsa, ES, A/L 25 ml/m^2 16 - 34 Peak v, S 0.66 m/sec ----- Peak v, D 0.4 m/sec ----- Right atrium Value Ref Peak S/D ratio 1.7 ----- SI dim, ES 4.4 cm 3.4 - 5.3 A rev duration 106 ms ----- ML dim, ES, A4C 3.5 cm 2.6 - 4.4 Estimated RAP 8 mm Hg Aortic valve Value Ref Cassandra diam, ED 2.1 cm Peak v, S 1.4 m/sec VTI, S 26.7 cm Mean grad, S 4.0 mm Hg Peak grad, S 8.0 mm Hg Legend: (L) and (H) martir values outside specified reference range. Prepared and electronically signed by King Bhakta MD 11/19/2018 16:56
--- NOTE | 2018-11-19 17:28 | HP ---
CC: Dr. Lu * HISTORY AND PHYSICAL: DATE OF ADMISSION: 11/19/18 PROVIDER: Sandra Garvey NP. PRIMARY CARE PROVIDER: Dr. Lu. ATTENDING PHYSICIAN WHILE IN THE HOSPITAL: Dr. Isabelle Ferro * (dictated by Sandra Garvey NP). CHIEF COMPLAINT: 1. Left-sided chest pain. 2. Left facial and left arm numbness. HISTORY OF PRESENT ILLNESS: Ms. Shahid is a 38-year-old female with no past medical history, who reports she woke yesterday morning at 6 a.m. complaining of left facial numbness that was unchanged throughout the day. She reports that this morning she woke and had left arm numbness with continued left facial numbness. She reports that she got ready for work and took some Tylenol. She reports that when she was driving to work this morning she developed left-sided chest pain at approximately 7:30 as an aching, numbness to the left chest. Due to these symptoms, the patient presented to the emergency room for further evaluation. The patient denies any recent fever, chills, or unintended weight loss. She does report left-sided chest pain. No radiation. She does report that the left-sided chest pain was worse with deep breath. She denies any chest pain with exertion or physical activity. She denied any diaphoresis. She does report that she felt nauseated. No vomiting. Denies any diarrhea or abdominal pain. No cough, hemoptysis, or shortness of breath. No edema. No gross hematuria or dysuria. She does complaining of tingling and numbness to the left arm and left face. No visual complaints. No dysphagia, arthralgias, myalgias, rashes, lesions or open sores, psychosis, or anxiety. While in the emergency room, the patient had routine lab work drawn. She was found to have a vitamin B12 of 141. Other lab work was essentially within normal limits. Blood glucose was 103. TSH was 1.62. The patient also had a CTA of the chest, which was normal. No pulmonary embolism. CT of the brain showed no intracranial pathology. EKG was normal sinus rhythm with no ST or T- wave changes. Due to her continued left facial numbness, she was seen and evaluated by Neurology, who recommended MRI and MRA of the brain and neck. Due to the continued left facial numbness and left arm numbness, we were asked to see and evaluate her for admission. PAST MEDICAL HISTORY: None. PAST SURGICAL HISTORY: D and C and ovary removed approximately 1 year ago. HOME MEDICATIONS: None. ALLERGIES: No known drug allergies. FAMILY HISTORY: Paternal grandfather with an HI and quadruple bypass. Maternal grandfather with diabetes. Maternal grandmother with lung and breast cancer. SOCIAL HISTORY: Denies any tobacco or illicit drug use. She has never smoked. She does report occasional alcohol use. She is . Surrogate decision maker in the event she is unable to make her own decisions is her , Ulises. She is a full code. REVIEW OF SYSTEMS: A 14-point review of systems was completed. All pertinent positives were mentioned in the HPI, otherwise were negative. PHYSICAL EXAMINATION GENERAL: At this time, Ms. Shahid is alert and oriented, resting on the stretcher in the emergency room. She is in no acute distress. She is well developed, well nourished. VITAL SIGNS: Blood pressure 114/84, heart rate 61, respirations are 15, O2 saturation 98%, temperature was 97.6. HEENT: Head is atraumatic, normocephalic. Eyes: EOMs are intact. Sclerae anicteric and not pale. Oral mucosa appeared to be moist. NECK: Supple. LUNGS: Clear to auscultation bilaterally. No wheezes, rales, or rhonchi. CARDIAC: S1, S2. Regular rate and rhythm. No murmurs, rubs, or gallops. ABDOMEN: Soft and nontender. Bowel sounds are present x4. EXTREMITIES: She is able to move all 4 extremities with 5/5 strength. There is no clubbing or cyanosis. Pedal pulses are +2. Radial pulses are +2. NEUROLOGIC: She is awake, alert, oriented x3. Speech is clear. Thought process is intact. There are no gross focal deficits. Handgrips are equal. Tongue is midline. Czzyjm-[id number]-tpww is intact. Shoulder shrug is equal. She does have some decreased sensation in the left cheek and left arm. Sensation in the lower extremities is intact. Push-pull is intact. There is no pronator drift. There is no leg drift. SKIN: Intact. DIAGNOSTIC STUDIES/LAB DATA: WBCs are 4.3, RBCs 4.03, hemoglobin 13.6, hematocrit 39, platelet count is 322. INR was 0.98. Sodium 139, potassium 4.2 , chloride 108, carbon dioxide was 26, anion gap of 5, BUN was 12, creatinine 0.89, glucose was 103, calcium 9.1. AST was 15, ALT was 13, alkaline phosphatase was 63. Troponin was 0.00 x3. TSH was 1.62. Vitamin B12 was 141. She had an electrocardiogram, which showed sinus rhythm at a rate of 70. She does have T-wave inversion in V1 that is nonspecific. There are no ST depressions. She had a chest x-ray, radiologist's impression: No acute cardiopulmonary process was evident. She had a CT of the brain: No evidence of intracranial mass or hemorrhage. She had a CTA of the chest, which showed no pulmonary embolism. ASSESSMENT AND PLAN: Ms. Shahid is a 38-year-old female with no past medical history, who presented to the emergency room with complaints of left-sided chest pain, worse with deep breath and left facial and left arm numbness. She will be admitted under observation for: 1. Left facial and left arm numbness. The patient was seen in consultation by Dr. Vann from Neurology. MRA and MRI of the brain have been ordered as well as a transthoracic echocardiogram. Neurology has recommended holding on statin and aspirin at this time until results of MRI are available. I will add a lipid profile and she will continue on neuro checks q.4 hours. She will be placed on telemetry. I suspect some of her numbness and tingling could be related to a low vitamin B12 level of 141. We will replace her vitamin B12. 2. Left-sided chest pain. The patient has had 3 negative troponins. Her EKG showed sinus rhythm at a rate of 70 with no EKG changes other than T-wave inversion in V1, which is nonspecific. She will be monitored on telemetry. Her YULISSA score at this point is 0. Transthoracic echocardiogram is currently pending. At this time, I will hold off on cardiac stress test. As the patient does report that the chest pain is worse with deep breath, she did have a CTA of the chest that was negative for pulmonary embolism. At this time, the patient is low suspicion for acute coronary syndrome. 3. FEN: She can have a regular diet. 4. Code status: She is a full code. 5. DVT prophylaxis: I will encourage ambulation. TIME SPENT: Time spent on this admission was approximately 60 minutes, greater than half that time was spent at the bedside reviewing events leading thus far to her hospitalization, performing physical exam, and reviewing my plan of care. I have discussed this with my attending Dr. Isabelle Ferro; she is in agreement with my plan. SANDRA GARVEY, SQL SERVER DBA [id number]/[facility] #: [id number] [place]
[2018-11-19] MEDS: Cyanocobalamin INJ * 1,000 MCG/ML VIAL 1 ML VIAL IM SCH (20:17)
[2018-11-20 07:25] LABS: HDL Cholesterol 54.7 mg/dL
[2018-11-20] MEDS: Cyanocobalamin INJ * 1,000 MCG/ML VIAL 1 ML VIAL IM SCH (09:15)
[2018-11-20 11:23] VITALS: BP 116/65
--- NOTE | 2018-11-21 00:23 | DS ---
CC: Dr. Lu; Dr. Vann * DISCHARGE SUMMARY: DATE OF ADMISSION: 11/19/18 DATE OF DISCHARGE: 11/20/18 PROVIDER: MERISSA Magallon ATTENDING PHYSICIAN WHILE IN THE HOSPITAL: Dr. Isabelle Ferro * (dictated by MERISSA Magallon). PRIMARY CARE PROVIDER: Dr. Lu. CONSULTING NEUROLOGIST: Dr. Vann. PRIMARY DIAGNOSES: 1. Vitamin B12 deficiency. 2. Left-sided chest pain, noncardiac. SECONDARY DIAGNOSES: None. STUDIES WHILE IN THE HOSPITAL: 1. Head and neck MR angiogram on 11/19/18, impression: No definite acute/ significant intracranial abnormality. Isolated punctate T2/FLAIR intensity in the medulla without additional signal alteration, is favored to be artifactual. If this signal is clinically suspicious, short-term followup imaging could be performed. No acute occlusive disease, significant stenosis, or aneurysm of the brain. No acute occlusive disease or significant stenosis of the neck. 2. Cervical spine MRI on 11/19/18, mild degenerative disk disease at the C5-C6 level. 3. Brain MRI on 11/19/18, see results above from the MRI. 4. Chest/thorax CT angiogram on 11/19/18, negative for pulmonary embolism. 5. Brain CT on 11/19/18, no evidence of intracranial mass or hemorrhage is noted. 6. An 11/19/18 chest x-ray, no acute cardiopulmonary disease. 7. Transthoracic echocardiogram on 11/19/18, negative bubble study, left ventricle with normal wall motion, ejection fraction is 50% to 55%, no diastolic dysfunction. PERTINENT LABORATORY DATA: Vitamin B12 of 141. Troponin 0 x3 measurements. HISTORY OF PRESENT ILLNESS/HOSPITAL COURSE: Jessica Shahid is a 38-year-old female with no significant past medical history who presented to the emergency department due to left facial numbness, left arm numbness, left-sided chest pain. Please see admission H and P dictated by Sandra Garvey NP for further information. While the patient was at the hospital, she had all the above testing, which was found to be negative. The MR imaging was reviewed by Dr. Vann and he believes there are no acute findings to explain her symptoms other than this vitamin B12 deficiency. She received 2 total doses of injected cyanocobalamin during her stay and her symptoms did improve, though it did not resolve. Her numbness did improve but did not resolve. Her chest pain did; however, resolve. There is no concern for ACS given there are no acute findings on echocardiogram. Her troponins were negative and her EKG was normal. Therefore, a stress test was not indicated given her lack of risk factors. On day of discharge, the patient is feeling improved as previously mentioned. She has no chest pain, no shortness of breath, no otherwise difficulty breathing. No new numbness or tingling, and the numbness and tingling in her left face and left upper extremity are improved. The numbness to her left lower extremity is isolated to her upper arm and does not continue to the neck or into the lower left arm. Denies visual changes or headache. The patient's telemetry was normal throughout her stay. PHYSICAL EXAM: General: Young white female lying upright on the hospital bed, appearing comfortable, in no acute distress, and appearing very calm. Head: Normocephalic, atraumatic. Eyes: PERRL. Sclerae anicteric. EOMI. ENT: Mucous membranes are moist. Neck: Supple without JVD. Lungs: Clear to auscultation throughout. Cardio: Regular rate and rhythm without murmurs, rubs , or gallops. Abdomen: Soft, nontender, nondistended. Extremities: No clubbing, cyanosis, or edema. Neuro: Alert and oriented x3. Able to move all extremities. 5/5 strength in all extremities. Minimally diminished sensation to light touch in the left upper extremity and upper arm and left cheek and in left-sided face in the maxillary distribution and mandibular distribution. Face is symmetrical. Skin is warm, dry, and intact. DISCHARGE PLAN: Diet: The patient may return to normal diet. Activity: The patient may return to regular activity as tolerated. The patient is advised to return to the emergency department if she is experiencing worsening symptoms or new symptoms such as severe chest pain associated with difficulty breathing, unilateral weakness. The patient is to follow up with [facility] Neurology in 6 to 8 weeks. She is advised to follow up with her primary care provider in 7 to 10 days regarding this hospitalization. It is advised that she have a repeat vitamin B12 level in [address] Vann recommends a repeat MRI if her symptoms persist or worsen, which will be discussed at her followup appointment with [facility] Neurology. DISCHARGE MEDICATIONS: New medication: Cyanocobalamin 1000 mcg p.o. daily. Continued home medications: Not applicable. CONDITION ON DISCHARGE: Stable. DISPOSITION: Home. TIME SPENT: Approximately 45 minutes were spent on this discharge, approximately half of this time was spent at the bedside. MERISSA MAGALLON [id number]/[facility] [place] [id number] [place]
[2018-11-21] MEDS ORDERED: Cyanocobalamin TAB* 500 MCG PO SCH (09:00)
== END 2018-11-20 13:26 | disposition home or self-care (01) ==
LOC: ED 08:18 → MEDTELE 15:18
PROVIDERS: ADMIT Internal Medicine; ATTEND Internal Medicine
DX: E53.8 Deficiency of other specified B group vitamins (principal); R07.89 Other chest pain; R20.0 Anesthesia of skin; R51 Headache; R11.0 Nausea; Z86.718 Personal history of other venous thrombosis and embolism; J45.909 Unspecified asthma, uncomplicated; M50.322 Other cervical disc degeneration at C5-C6 level
CPT/HCPCS: 36415; 70450; 70544; 70547; 70553; 71045; 71275; 72156; 80053; 80061; 82607; 84443; 84484; 85025; 85610; 86618; 93005; 93306; 96372; 96374; 99284; A9579; G0378; J1885; J3420; Q9967

== ENCOUNTER 2019-02-04 14:14 | Emergency (ER) | payer OTHER ==
[2019-02-04 14:54] VITALS: BP 109/61
--- NOTE | 2019-02-04 14:57 | UC ---
Respiratory Complaint HPI - HPI Summary HPI Summary: 38 yo female presents with URI symptoms. She tells me that over the last 3-4 days she has had a dry cough and pain with swallowing. She works at [employer] and is around small children daily. She has been taking tylenol for discomfort with mild relief. Denies fever, chills, rash, sinus symptoms, SOB, abdominal pain, n/v. She does not smoke - History of Current Complaint Chief Complaint: UCRespiratory Stated Complaint: RESP ISSUE Time Seen by Provider: 02/04/19 14:57 Hx Obtained From: Patient Hx Last Menstrual Period: 01/10/19 Onset/Duration: Gradual Onset Severity Initially: Moderate Severity Currently: Moderate Pain Intensity: 7 Pain Scale Used: 0-10 Numeric - Allergies/Home Medications Allergies/Adverse Reactions: Allergies Allergy/AdvReac Type Severity Reaction Status Date / Time No Known Allergies Allergy Verified 02/04/19 14:54 Home Medications: Home Medications Acetaminophen TAB* [Tylenol TAB*] 325 mg PO Q4H PRN 02/04/19 [History Confirmed 02/04/19] PMH/Surg Hx/FS Hx/Imm Hx - Additional Past Medical History Additional PMH: DVT Other History Of: Negative For: Anticoagulant Therapy - Surgical History Surgical History: Yes Surgery Procedure, Year, and Place: LEFT THUMB ~ 1994;. right ovary removal - Family History Known Family History: Positive: Cardiac Disease - grandfather, Diabetes, Other - blood clots (father) Family History: Cancer - Social History Lives: With Family Alcohol Use: Occasionally Alcohol Amount: 5-6 on weekends Substance Use Type: None Smoking Status (MU): Never Smoked Tobacco - Immunization History Most Recent Influenza Vaccination: unsure Most Recent Tetanus Shot: unsure Most Recent Pneumonia Vaccination: never Review of Systems All Other Systems Reviewed And Are Negative: No Constitutional: Positive: Negative Skin: Positive: Negative Eyes: Positive: Negative ENT: Positive: Sore Throat Respiratory: Positive: Cough Cardiovascular: Positive: Negative Gastrointestinal: Positive: Negative Neurovascular: Positive: Negative Neurological: Positive: Negative Psychological: Positive: Negative Physical Exam - Summary Physical Exam Summary: GENERAL: NAD. WDWN. No pain distress. SKIN: No rashes, sores, lesions, or open wounds. HEENT: Head: AT/NC Eyes: Conjunctiva clear without inflammation or discharge. Ears: Hearing grossly normal. TMs intact, no bulging, erythema, or edema. Nose: Nasal mucosa pink and moist. NTTP maxillary and frontal sinus. Throat: Posterior oropharynx mild erythema and 2+ tonsillar enlargement. No exudates. Uvula midline. No hoarse voice or muffled voice. NECK: Supple. Left tonsillar LAD mild TTP CHEST: CTAB. No r/r/w. No accessory muscle use. Breathing comfortably and in no distress. CV: RRR.. Pulses intact. Cap refill <2seconds NEURO: Alert. PSYCH: Age appropriate behavior. Triage Information Reviewed: Yes Vital Signs: Initial Vital Signs Temp 98.3 F 02/04/19 14:48 Pulse 78 02/04/19 14:48 Resp 16 02/04/19 14:48 BP 109/61 02/04/19 14:48 Pulse Ox 100 02/04/19 14:48 Laboratory Tests 02/04/19 15:22 Group A Strep Rapid Positive A Vital Signs Reviewed: Yes Diagnostics - Radiology CXR Radiology Interpretation Completed By: Radiologist Summary of Radiographic Findings: IMPRESSION: NO ACTIVE CARDIOPULMONARY DISEASE. Respiratory Course/Dx - Course Course Of Treatment: CXR as above. POC strep positive. Will treat with amoxicillin - Differential Dx/Diagnosis Provider Diagnosis: Strep throat Discharge ED - Sign-Out/Discharge Documenting (check all that apply): Patient Departure All imaging exams completed and their final reports reviewed: Yes - Discharge Plan Condition: Stable Disposition: HOME Prescriptions: Amoxicillin PO (*) [Amoxicillin 500 MG CAP*] 500 mg PO Q12H #20 cap Patient Education Materials: Strep Throat (ED) Forms: *Work Release Referrals: Aly SHRESTHA,Devendra Pineda [Primary Care Provider] - Additional Instructions: If you develop a fever, shortness of breath, chest pain, new or worsening symptoms - please call your PCP or go to the ED immediately. - Billing Disposition and Condition Condition: STABLE Disposition: Home - Attestation Statements Provider Attestation: Per institutional requirements, I have reviewed the chart, however, I was not consulted specifically or made aware of this patient by the midlevel provider. I did not personally evaluate, interact with , or disposition this patient.
== END 2019-02-04 15:45 | disposition home or self-care (01) ==
LOC: UCEAST 14:14
DX: J02.0 Streptococcal pharyngitis (principal)
CPT/HCPCS: 71046; 87651; 99212; G0463